=== PATIENT | female | born 1950 | race Caucasian/White ===

== ENCOUNTER 2016-12-22 05:59 | Day surgery (SDC) | payer OTHER ==
--- NOTE | 2016-12-21 11:23 | NUR ---
NN PT HAS IMPLANTED [employer], MODEL# [id number], SERIAL # [id number]
[~2016-12-22] VITALS: Ht 152.4 cm; Wt 114.1 kg
[~2016-12-22 05:59] MED LIST: CITA40TA14 PO; LEVO125T11 PO; LISI1TAB9 PO; MULT-1243 PO; PRAM1TAB3 PO; SOTA80TA PO; TEMA30CA PO
--- OUTSIDE RECORDS SUMMARY | 2016-12-22 06:03 | XMS REPORT | Continuity of Care Document ---
Author Author [facility] Organization [facility] Address Unknown Phone Unavailable Support Name Relationship Address Phone GEORGE ALCANTARA MD Caregiver [address] [place] [phone] BLAIR SANCHEZ MD Caregiver [address] [place], [place] [id number] JAMES ROMAN Next Of Kin [address] [place], [place] [id number] Insurance Providers Payer Name Policy Number Subscriber Name Relationship Other A Insurance [id number] James Roman 01 Spouse Advance Directives Directive Response Recorded Date/Time Ordered Resuscitation Status Full Code 08/12/14 1:57pm Resuscitation Documents on File WILL BRING TO THE HOSPITAL 08/12/14 11:46am Chief Complaint and Reason for Visit Chief Complaint RTK Reason for Visit Degenerative arthritis of right knee Hyperlipemia Hypertension Obesity, morbid, BMI 40.0-49.9 Depression Pre-diabetes Restless leg syndrome Lumbago Insomnia Risk factors for obstructive sleep apnea Fibromyalgia Prolonged UT interval Anemia Hypo-osmolality and hyponatremia Status post total right knee replacement Leukocytosis Sinus bradycardia Sinus pause Paroxysmal atrial fibrillation Status post placement of cardiac pacemaker New onset atrial fibrillation Problems Medical Problems Problem Onset Date Status Degenerative arthritis of right knee Unknown Active Hyperlipemia Unknown Active Hypertension Unknown Active Obesity, morbid, BMI 40.0-49.9 Unknown Active Depression Unknown Active Pre-diabetes Unknown Active Restless leg syndrome Unknown Active Lumbago Unknown Active Insomnia Unknown Active Risk factors for obstructive sleep apnea Unknown Active Fibromyalgia Unknown Active Prolonged UT interval Unknown Active Anemia Unknown Active Hypo-osmolality and hyponatremia Unknown Resolved Status post total right knee replacement Unknown Active Leukocytosis Unknown Active Sinus bradycardia Unknown Active Sinus pause Unknown Active Paroxysmal atrial fibrillation Unknown Active New onset atrial fibrillation Unknown Active Surgical Problems Problem Onset Date Recorded Date/Time Status Status post placement of cardiac pacemaker Unknown 08/16/2014 4:18pm Active Medications Medication Dose Route Sig Days/Qty Instructions Order Date Discontinued Date Status Trazodone Hcl 1 Tab PO DAILY 06/25/08 09/17/10 Discontinued Pramipexole Di-Hcl 1 Tab PO DAILY 06/25/08 06/25/08 Discontinued Aspirin 1 Tab PO DAILY 06/25/08 06/25/08 Discontinued Fexofenadine Hcl 1 Tab PO DAILY 06/25/08 06/25/08 Discontinued Alprazolam 0.5 Mg PO BEDTIME 06/25/08 06/25/08 Discontinued Aspirin 81 Mg PO DAILY 06/25/08 08/17/14 Discontinued Omeprazole 20 Mg PO TWICE A DAY 06/25/08 09/17/10 Discontinued [Kdur] 20 THREE TIMES A DAY 06/25/08 09/17/10 Discontinued Pramipexole Di-Hcl 0.25 Mg PO BEDTIME 06/25/08 09/17/10 Discontinued Ceftriaxone Sodium 1 G IJ DAILY 06/25/08 09/17/10 Discontinued Doxycycline Monohydrate 150 Mg PO TWICE A DAY 06/25/08 09/17/10 Discontinued Hydrocodone Bit/Acetaminophen 1 Udtab PO NEEDED PRN 06/25/0818/07 Discontinued Ibuprofen 800 Mg PO NEEDED PRN 06/25/08 09/17/10 Discontinued Acetaminophen 325 Mg PO NEEDED PRN 06/25/08 09/17/10 Discontinued [Lomotil] NEEDED PRN 06/25/08 09/17/10 Discontinued Salmeterol Xinafoate/Fluticasone 1 Disk IH TWICE A DAY 06/25/0818/07 Discontinued Fluticasone Propionate 16 Gm NS TWICE A DAY 06/25/08 09/17/10 Discontinued Trazodone Hcl 100 Mg PO BEDTIME 09/17/10 Active Levothyroxine Sodium 1 Tab PO DAILY 45 Qty 07/05/14 Active Metformin HCl 500 Mg PO TWICE A DAY 60 Qty 07/05/14 Active Citalopram Hydrobromide 40 Mg PO DAILY 30 Qty 07/05/14 Active Pitavastatin Calcium 1 Mg PO DAILY 90 Qty 07/05/14 Active Omeprazole 40 Mg PO BEDTIME 30 Qty 07/05/14 Active Nebivolol HCl 1 Tab PO DAILY 08/12/14 Active Lisinopril/Hydrochlorothiazide 1 Tab PO DAILY 08/12/14 Active Pramipexole Di-HCl 1 Tab PO DAILY 08/12/14 Active Montelukast Sodium 10 Mg PO BEDTIME Take 1 tablet, by mouth, one time a day (at bedtime). 08/12/14 Active Ranitidine HCl 150 Mg PO BEDTIME 08/12/14 Active Multivits-Min/FA/Lycopene/Lut 1 Tab PO DAILY 08/12/14 Active Ferrous Sulfate, Dried 1 Tab PO DAILY BEST WITH FOOD. 08/12/14 Active Acetaminophen 650 Mg PO FOUR TIMES DAILY 100 Qty 08/17/14 Active Multivits,Th W-Fe,Other Min 1 Tab PO DAILY 30 Qty 08/17/14 Active Oxycodone HCl 5-15 Mg PO Every 3 Hours PRN BREAKTHROUGH PAIN 60 Qty Active Warfarin Sodium 4 Mg PO GIVE AT NOON 30 Qty 08/17/14 Active Enoxaparin Sodium 40 Mg SQ Q24H 5 Qty 08/18/14 Active Levofloxacin 500 Mg PO DAILY 7 Qty 08/18/14 Active Social History Social History Problem Response Recorded Date/Time Chewing Tobacco Status No 08/13/2014 8:10am Hx Substance Use No 08/13/2014 8:10am Hx Alcohol Use No 08/13/2014 8:10am Has the pt used tobacco in the last 12 months No 08/13/2014 8:10am Tobacco Usage none 08/14/2014 1:59pm Query Response Start Date Stop Date Smoking Status Never smoker Hospital Discharge Instructions Instructions: Care Instructions: Reason for Hospitalization: right TKA I was in the hospital because (patient own words): right knee replacement Discharge Diet: Regular Discharge Activity: Restrictions: No lifting greater than 10 pounds with the left arm for 3 weeks. No raising left arm greater than 90 degrees at the shoulder for 3 weeks. Wear arm immobilizer at night for [address] for 2-3 weeks. Follow Up Appointments: Follow-up on Wednesday, August 27, 2014 at 10:30AM for an incision check with Jillian Beaulieu PA-C. Follow-up on September 25 at 1:30pm for office visit with Dr. Sarmiento for a device interrogation. Call [phone] to reschedule if these times fdo not work with your schedule. Patient Instructions: Sotalol 40 mg twice daily Minocycline 100 mg twice daily for 7 days on Discharge. Wound/Incision Care: Keep wound clean and dry. Keep the steri-strips in place. They will fall off on their own. Do not soak in water, but it is ok to shower. Notify Physician If: Increase pain, swelling, redness or drainage at the site is noted. Condition at time of discharge: Good Discharge Diet: Regular Diet Discharge Activity: No weight bearing on left leg. Elevate left leg. Apply ice pack to left knee to reduce swelling. May ambulate with front wheeled walker but must avoid weight bearing left leg. Follow Up Appointments: Scheduled for surgical repair of left tibial plateau fracture by Dr. Wing Dennis on 08/19/14. Patient Instructions: Same as discharge activity listed above Take medications as directed. Durable Medical Equipment: Front wheeled Walker Notify Physician If: Severe pain not controlled with Roxicodone 5 mg 1-2 tabs po q4-6hrs prn pain. Condition at time of discharge: Good Plan of Care Discharge Date 08/18/14 10:45am Disposition 01 DISCHARGED HOME, SELF-CARE Instructions/Education Provided [facility] Postop Instructions DI for Obstructive Sleep Apnea -- Adult Prescriptions See Medications Section Functional Status Query Response Date Recorded Physical Hygiene Self August 18, 2014 10:10am Disabilities None August 18, 2014 10:10am Devices Used Cane Walker August 18, 2014 10:10am Dressing Self August 18, 2014 10:10am Ambulation Self August 18, 2014 10:10am Diet Self August 18, 2014 10:10am Mental Status Alert Oriented August 18, 2014 10:10am Disabilities None August 18, 2014 10:10am Devices Used Cane Walker August 18, 2014 10:10am Physical Hygiene Self August 18, 2014 10:10am Dressing Self August 18, 2014 10:10am Ambulation Self August 18, 2014 10:10am Diet Self August 18, 2014 10:10am Allergies, Adverse Reactions, Alerts Allergen Type Severity Reaction Status Last Updated Penicillin Allergy Unknown RASH Active 09/21/12 Sulfa (Sulfonamide Antibiotics) Allergy Unknown ? RASH Active 09/21/12 Triamterene Allergy Unknown HIVES Active 07/05/14 Immunizations Name Given Type Hx Influenza Vaccination Yes Historical Hx Pneumococcal Vaccination Yes Historical Hx Tetanus, Diptheria, Pertussis Yes Historical Hx Influenza Vaccination Yes Historical Hx Tetanus Diptheria Yes Historical Hx Tetanus, Diptheria, Pertussis Yes Historical Hx Tetanus Toxoid Vaccination Yes Historical Influenza, seasonal, injectable 08/16/14 Administered pneumococcal polysaccharide PPV23 08/16/14 Administered Vital Signs Acute Vital Signs Vital Response Date/Time Temperature (Fahrenheit) 98.2 deg F (96.8 - 99.1) Temperature (Calculated Celsius) 36.53811 degrees C (36.0 - 37.3) Temperature Source Oral Pulse Rate (adult) 68 bpm (60 - 100) Respiratory Rate 16 breaths/min (10 - 20) Height 5 ft 0 in Weight 266 lb Body Mass Index 52.0 kg/m^2 Results Test Source Date Result Interp. Ref. Range Comments Absolute Reticulocyte Count June 24, 2008 4:45am 0.0180 T/MM3 L 0.0300-0.0900 Alanine Aminotransferase (ALT/SGPT) June 20, 2008 1:39am 10 U/L N 9- 52 Albumin June 20, 2008 1:39am 3.3 G/DL L 3.5-5.0 Albumin/Globulin Ratio June 20, 2008 1:39am 1.1 RATIO N 1.1-2.2 Alkaline Phosphatase June 20, 2008 1:39am 89 U/L N 38-126 Anion Gap August 18, 2014 4:25am 5 MEQ/L N 5-15 Aspartate Amino Transf (AST/SGOT) June 20, 2008 1:39am 16 U/L N 14- 36 BUN/Creatinine Ratio August 18, 2014 4:25am 17 RATIO N 6-26 Band Neutrophils # June 25, 2008 5:38am 0.1 T/MM3 - Band Neutrophils % June 25, 2008 5:38am 1.0 % N 0-6 Basophils # (Auto) August 18, 2014 4:25am 0.1 T/MM3 N 0-0.2 Basophils # (Manual) June 23, 2008 5:35am 0.0 T/MM3 N 0-0.2 Basophils % (Manual) June 23, 2008 5:35am 0.0 % N 0-2 Basophils (%) (Auto) August 18, 2014 4:25am 0.7 % N 0-2 Blood Urea Nitrogen August 18, 2014 4:25am 12.0 MG/DL N 7-17 C-Reactive Protein June 20, 2008 1:39am 210 MG/L H 0-9 Calcium Level August 18, 2014 4:25am 8.9 MG/DL N 8.4-10.2 Calculated Osmolality August 18, 2014 4:25am 266 MOSM/KG N 261-280 Carbon Dioxide Level August 18, 2014 4:25am 33 MEQ/L H 22-30 Chemistry Specimen Hemolysis August 18, 2014 4:25am < 15 0-25 0-25 : No Hemolysis.26-70: Slight Hemolysis - can falsely elevate K and Urine Protein. 71-285: Moderate Hemolysis - can falsely elevate K, Troponin I, CA 19-9, PTH, CSF GLucose, and Urine Protein, and can falsely decrease Phenytoin. 286-999: Gross Hemolysis - can falsely elevate K, Troponin I, CA 19-9, PTH, CSF Glucose, and Urine Protine, and can falsely decrease Phenytoin. Recommend specimen recollection. Chloride Level August 18, 2014 4:25am 100 MEQ/L N 98-107 Clostridium Difficile Toxin A & B June 21, 2008 1:03am Negative - Has specimen been collected/obtained? Y Creatinine August 18, 2014 4:25am 0.7 MG/DL N 0.7-1.2 Differential Total Cells Counted June 17, 2008 9:45pm 100 % - Eosinophils # (Auto) August 18, 2014 4:25am 0.5 T/MM3 N 0-0.5 Eosinophils # (Manual) June 25, 2008 5:38am 0.1 T/MM3 N 0-0.5 Eosinophils % (Manual) June 25, 2008 5:38am 1.0 % N 0-4 Eosinophils (%) (Auto) August 18, 2014 4:25am 5.9 % H 0-4 Erythrocyte Sedimentation Rate June 20, 2008 1:39am 47 MM/HR - Ferritin June 24, 2008 4:45am 649 NG/ML H 10-265 Globulin June 20, 2008 1:39am 3.0 G/DL N 2.4-3.5 Glomerular Filtration Rate Calc August 18, 2014 4:25am 85 - Glucometer August 18, 2014 10:20am 106 mg/dL N 65-110 Glucose Level August 18, 2014 4:25am 102 MG/DL N 65-110 HIV (1&2) Antibody Rapid June 20, 2008 1:39am Negative - Hematocrit August 18, 2014 4:25am 31.3 % L 36-46 Hemoglobin August 18, 2014 4:25am 10.1 GM/DL L 12-16 Icterus Index August 18, 2014 4:25am < 2 0-7 Immature Granulocyte # (Auto) August 18, 2014 4:25am 0.03 T/MM3 N 0.00 -0.03 Immature Granulocyte % (Auto) August 18, 2014 4:25am 0.4 % N 0.0-0.5 Immature Reticulocyte Fraction June 24, 2008 4:45am 18.0 % H 3.3- 14.5 Influenza Virus Types A,B Antigen June 20, 2008 1:39am Negative - Iron Level June 24, 2008 4:45am 20 UG/DL L 37-170 Lab Scanned Report August 05, 2014 9:37am LAB TEST FORM REQUEST [id number] - Lyme Disease Total Antibody June 20, 2008 12:00am Send out - Lymphocytes # (Auto) August 18, 2014 4:25am 1.8 T/MM3 N 1-4.8 Lymphocytes # (Manual) June 25, 2008 5:38am 2.9 T/MM3 N 1-4.8 Lymphocytes % (Manual) June 25, 2008 5:38am 32.0 % N 23-45 Lymphocytes (%) (Auto) August 18, 2014 4:25am 21.1 % L 23-45 MRSA Specimen Source August 05, 2014 8:51am Nasal - Magnesium Level August 15, 2014 4:33am 2.1 MG/DL N 1.6-2.3 Mean Corpuscular Hemoglobin August 18, 2014 4:25am 29.3 UUG N 26-34 Mean Corpuscular Hemoglobin Concent August 18, 2014 4:25am 32.3 GM/DL N 31-37 Mean Corpuscular Volume August 18, 2014 4:25am 90.7 UM3 N 80-100 Mean Platelet Volume August 18, 2014 4:25am 9.7 UM3 N 9.4-12.4 Methicillin-Resist S.aureus DNA PCR August 05, 2014 8:51am Negative - Monocytes # (Auto) August 18, 2014 4:25am 0.9 T/MM3 H 0-0.8 Monocytes # (Manual) June 25, 2008 5:38am 0.8 T/MM3 N 0-0.8 Monocytes % (Manual) June 25, 2008 5:38am 9.0 % N 0-9.0 Monocytes (%) (Auto) August 18, 2014 4:25am 11.0 % H 0-9.0 MF-Jpk-V-Type Natriuretic Peptide September 21, 2012 10:41pm 241 PG/ML H 0 -175 Rule in cut points: <50 years old=450; 50-75 years old=900; >75 years old=1800; When utilizing ProBNP rule-in cut points, adjustment for impaired renal function is typically not required. Neutrophils # (Auto) August 18, 2014 4:25am 5.1 T/MM3 N 1.8-7.7 Neutrophils # (Manual) June 25, 2008 5:38am 5.1 T/MM3 N 1.8-7.7 Neutrophils % (Manual) June 25, 2008 5:38am 57.0 % N 33-66 Neutrophils (%) (Auto) August 18, 2014 4:25am 60.9 % N 33-66 Ova and Parasites (LAB) June 22, 2008 11:46am Sent out - Has specimen been collected/obtained? Y Percent Reticulocyte Count June 24, 2008 4:45am 0.6 % N 0.6-1.7 Platelet Count August 18, 2014 4:25am 218 T/MM3 N 130-400 Potassium Level August 18, 2014 4:25am 3.9 MEQ/L N 3.6-5 Prothromb Time International Ratio August 18, 2014 4:25am 1.54 H 0.81- 1.09 THERAPUTIC RANGE=2.00-3.00 FOR ANTI-THROMBOSIS THERAPUTIC RANGE=2.50- 3.50 FOR IMPLANTED VALVE RDW Standard Deviation August 18, 2014 4:25am 43.6 FL N 36.9-50.2 Red Blood Count August 18, 2014 4:25am 3.45 M/MM3 L 4.00-5.20 Sodium Level August 18, 2014 4:25am 138 MEQ/L N 134-144 Thyroid Stimulating Hormone (TSH) August 15, 2014 4:33am 0.65 MIU/L N 0.47-4.68 Total Bilirubin June 20, 2008 1:39am 0.39 MG/DL N 0.20-1.30 Total Protein June 20, 2008 1:39am 6.3 G/DL N 6.3-8.2 Troponin I September 21, 2012 10:41pm < 0.012 ng/ml 0-0.12 Turbidity August 18, 2014 4:25am < 20 0-20 Urinalysis Comment August 16, 2014 1:00pm Microscopic not ind. - Has specimen been collected/obtained? Y Urine Bacteria June 21, 2008 2:00pm Trace - Has specimen been collected/obtained? Y Urine Bilirubin August 16, 2014 1:00pm Negative - Has specimen been collected/obtained? Y Urine Blood August 16, 2014 1:00pm Negative - Has specimen been collected/obtained? Y Urine Collection Type August 16, 2014 1:00pm Has specimen been collected /obtained? Y - Urine Color August 16, 2014 1:00pm Yellow - Has specimen been collected/obtained? Y Urine Glucose (UA) August 16, 2014 1:00pm Negative - Has specimen been collected/obtained? Y Urine Ketones August 16, 2014 1:00pm Negative - Has specimen been collected/obtained? Y Urine Leukocyte Esterase August 16, 2014 1:00pm Negative - Has specimen been collected/obtained? Y Urine Nitrite August 16, 2014 1:00pm Negative - Has specimen been collected/obtained? Y Urine Protein August 16, 2014 1:00pm Negative - Has specimen been collected/obtained? Y Urine RBC June 21, 2008 2:00pm None seen /HPF - Has specimen been collected/obtained? Y Urine Specific [place] August 16, 2014 1:00pm 1.025 - Has specimen been collected/obtained? Y Urine Squamous Epithelial Cells June 21, 2008 2:00pm Few - Has specimen been collected/obtained? Y Urine Turbidity August 16, 2014 1:00pm Clear - Has specimen been collected/obtained? Y Urine Urobilinogen August 16, 2014 1:00pm 0.2 EU/DL - Has specimen been collected/obtained? Y Urine WBC June 21, 2008 2:00pm 0-1 /HPF - Has specimen been collected/obtained? Y Urine pH August 16, 2014 1:00pm 6.0 - Has specimen been collected/ obtained? Y West Nile Virus IgG/IgM Antibody June 20, 2008 12:00am Send out - White Blood Count August 18, 2014 4:25am 8.4 T/MM3 N 4.5-11.0 Blood Culture Peripheral Blood August 16, 2014 11:54am NO GROWTH AFTER 24 HOURS Name: JEFF ROMAN Unit #: [id number] : 1950 Sex: F [place] [facility] [place] Signed Report #: [id number] DIAGNOSTIC IMAGING REPORT TYPE OF EXAM: CHEST, PA & LATERAL Dictated By: WING ALCANTARA MD INDICATION: ITS.REASON: POST PACER CHEST 2-VIEWS UPRIGHT (PA & LAT): COMPARISON: August 15, 2014 FINDINGS: The lungs are clear without evidence of focal abnormal airspace opacity. There is no pleural effusion or pneumothorax. Left dual lead cardiac pacemaker appears stable. No evidence of lead fracture or discontinuity. The heart size, mediastinal contours and pulmonary vascularity are within normal limits. There is no significant skeletal abnormality. IMPRESSION: No acute cardiopulmonary disease. Stable appearance of the left pacemaker leads. . Procedures Procedure Status Date Provider(s) MR-STAPH DNA AMP PROBE completed 07/16/14 INJECT SPINE LUMBAR/SACRAL completed 08/05/14 FLUOROGUIDE FOR SPINE INJECT completed 08/05/14 [id number]"INJECTION, METHYLPREDNISOLONE ACETATE, 40 MG" completed 08/05/14 [id number]"LOW OSMOLAR CONTRAST MATERIAL, 100-199 MG/ML IODINE C completed MR-STAPH DNA AMP PROBE completed 07/29/14 MR-STAPH DNA AMP PROBE completed 08/05/14 Total knee arthroplasty completed 08/13/14 BLAIR SANCHEZ MD Encounters Encounter Location Date/Time Discharged Inpatient [facility] 08/13/14 7:40am Registered [facility] 08/05/14 8:05am Registered [facility] 08/05/14 8:03am Registered [facility] 07/29/14 12:56pm Registered [facility] 07/16/14 1:38pm Registered [facility] 05/28/14 12:57pm Recent Diagnosis Degenerative arthritis of right knee Hyperlipemia Hypertension Obesity, morbid, BMI 40.0-49.9 Depression Pre-diabetes Restless leg syndrome Lumbago Insomnia Risk factors for obstructive sleep apnea Fibromyalgia Prolonged UT interval Anemia Hypo-osmolality and hyponatremia Status post total right knee replacement Leukocytosis Sinus bradycardia Sinus pause Paroxysmal atrial fibrillation New onset atrial fibrillation
--- OUTSIDE RECORDS SUMMARY | 2016-12-22 06:03 | XMS REPORT | Summary of Care ---
Author Author Shelby Navarrete, Randi Organization Unknown Address [address], [place] [id number] Phone Unavailable Care Team Providers Care Technical Cable Jointer Name Role Phone Skelton, Db Unavailable Unavailable Unavailable Unavailable Functional Status Functional Status Health Issues* Name Dates Details No known functional status health issues Status: Cognitive Status Health Issues* Name Dates Details No known cognitive status health issues Status: Problems Name Dates Details Hypertension (401.9, I10) Status: Active Diabetes mellitus (250.00, E11.9) Status: Active Chronic ethmoidal sinusitis (473.2, J32.2) Status: Active Head ache (784.0, R51) Status: Active Nasal congestion (478.19, R09.81) Status: Active Sleep apnea (780.57, G47.30) Status: Active Thyroid disorder (246.9, E07.9) Status: Active High blood cholesterol level (272.0, E78.0) Status: Active Chronic rhinitis (472.0, J31.0) Status: Active Medications Name Dates Details Levothyroxine Sodium 150 MCG Oral Tablet * Started 29-Nov-2013 ActiveMetFORMIN HCl - 500 MG Oral Tablet * Refills: 0 * Started 29-Nov-2013 ActiveLisinopril 10 MG Oral Tablet * Refills: 0 * Started 29-Nov-2013 ActiveBystolic 10 MG Oral Tablet * Refills: 0 * Started 29-Nov-2013 ActiveLivalo 1 MG Oral Tablet * Refills: 0 * Started 29-Nov-2013 ActiveCitalopram Hydrobromide 40 MG Oral Tablet * Refills: 0 * Started 29-Nov-2013 ActiveTraZODone HCl - 100 MG Oral Tablet * Refills: 0 * Started 29-Nov-2013 ActiveMirapex 1 MG Oral Tablet * Refills: 0 * Started 29-Nov-2013 ActiveAspir-Low 81 MG Oral Tablet Delayed Release * Refills: 0 * Started 29-Nov-2013 ActiveAllegra Allergy 180 MG Oral Tablet * Refills: 0 * Started 29-Nov-2013 ActivePhentermine HCl - 30 MG Oral Capsule * Refills: 0 * Started 29-Nov-2013 ActiveAleve 220 MG Oral Tablet * Refills: 0 * Started 29-Nov-2013 ActiveDymista 137-50 MCG/ACT Nasal Suspension 1 spray each nostril twice a day * Quantity: 1X23 GM Bottle Refills: 6 * Started 14-May-2014 Ended 10-Dec-2014 ActiveMontelukast Sodium 10 MG Oral Tablet Take 1 tablet by mouth every evening. * Quantity: 30 Tablet Refills: 6 * Started 14-May-2014 Ended 10-Dec-2014 ActivePredniSONE 20 MG Oral Tablet take one tablet by mouth every day * Quantity: 3 Tablet Refills: 0 * Started 14-May-2014 Ended 17-May-2014 Active Allergies and Adverse Reactions Name Dates Details Penicillins Status: Active Sulfa Drugs Status: Active Maxzide Status: Active Procedures Procedure Dates Details Section Tubal Ligation Procedures not documented Immunization Name Dates Details Immunizations not documented Family History Mother* Name Dates Details Family history of allergic rhinitis (V19.6, Z84.89) Status: Active Family history of urticaria (V19.4, Z84.0) Status: Active Family history of asthma (V17.5, Z82.5) Status: Active Social History Smoking Status* Unknown if ever smoked Vital Signs Date Test Result Details 14-May-2014 13:58 BP Systolic 128 mm[Hg] Status: BP Diastolic 65 mm[Hg] Status: Heart Rate 56 /min Status: Temperature 98.2 f Status: Weight 253 lb Status: Height 59 in Status: Body Mass Index Calculated 51.1 kg/m2 Status: Body Surface Area Calculated 2.04 Status: Results Date Description Value Details Results not documented Plan of Care Instructions* Instructions not documented Planned Observations* Name Dates Details Planned Goals not documented Goal Instructions * No Known Instructions Encounters Appointment; Randi Ryan Encounter Diagnosis: Problem not documented On 14-May-2014 13:30 Appointment; Alverto Dover Encounter Diagnosis: Problem not documented On 29-Nov-2013 10:15
--- OUTSIDE RECORDS SUMMARY | 2016-12-22 06:03 | XMS REPORT | Continuity of Care Document ---
Author Author [facility] Organization [facility] Address Unknown Phone Unavailable Support Name Relationship Address Phone GEORGE ALCANTARA MD Caregiver [address] [place] [phone] BLAIR VU MD Caregiver [address] [address] JAMES ROMAN Next Of Kin [address] [place] [address] Insurance Providers Payer Name Policy Number Subscriber Name Relationship Other A Insurance [id number] James Roman 01 Spouse Problems Medical Problems Problem Onset Date Status Degenerative arthritis of right knee Unknown Active Hyperlipemia Unknown Active Hypertension Unknown Active Obesity, morbid, BMI 40.0-49.9 Unknown Active Depression Unknown Active Pre-diabetes Unknown Active Restless leg syndrome Unknown Active Lumbago Unknown Active Insomnia Unknown Active Risk factors for obstructive sleep apnea Unknown Active Fibromyalgia Unknown Active Prolonged MA interval Unknown Active Anemia Unknown Active Hypo-osmolality [...] Omeprazole 20 Mg PO TWICE A DAY 10/28/08 01/20/11 Discontinued [Kdur] 20 THREE TIMES A DAY [...] History Social History Problem Response Recorded Date/Time Hx Substance Use No 08/13/2014 8:10am Hx Alcohol Use No 08/13/2014 8:10am Has the pt used tobacco in the last 12 months No 08/19/2014 1:16pm Tobacco Usage none 08/14/2014 1:59pm Hospital Discharge Instructions Instructions: Care Instructions: Reason [...] at 1:30pm for office visit with Dr. Garcia for a device interrogation. Call [phone] to reschedule if these times fdo not [...] noted. Condition at time of discharge: Good Plan of Care Discharge Date 08/18/14 10:45am Disposition 01 DISCHARGED HOME, SELF-CARE Instructions/Education Provided [facility] Postop Instructions DI for Obstructive Sleep Apnea -- Adult Prescriptions See Medications Section Functional Status Query Response Date Recorded Physical Hygiene Self August 18, 2014 10:10am Physical Hygiene Self August 18, 2014 10:10am Allergies, Adverse Reactions, Alerts Allergen Type Severity Reaction Status Last Updated Penicillin Allergy Unknown RASH Active 09/21/12 Sulfa (Sulfonamide Antibiotics) Allergy Unknown ? RASH Active 09/21/12 Triamterene Allergy Unknown HIVES Active 07/05/14 Immunizations Name Given Type Hx Influenza Vaccination No Historical Hx Pneumococcal Vaccination No Historical Hx Tetanus, Diptheria, Pertussis Yes Historical Hx Influenza Vaccination No Historical Hx Tetanus Diptheria Yes Historical Hx Tetanus, Diptheria, Pertussis Yes Historical Hx Tetanus Toxoid Vaccination Yes Historical Vital Signs Acute Vital Signs Vital Response Date/Time Temperature (Fahrenheit) 98.2 deg F (96.8 - 99.1) Temperature (Calculated Celsius) 36.86759 degrees C (36.0 - 37.3) Temperature Source Oral Pulse Rate (adult) 68 bpm (60 - 100) Respiratory Rate 16 breaths/min (10 - 20) Results Test Source Date Result Interp. Ref. [...] 18, 2014 4:25am 33 MEQ/L H 22-30 Chloride Level August 18, 2014 4:25am 100 [...] 20, 2008 1:39am 3.0 G/DL N 2.4-3.5 Glucose Level August 18, 2014 4:25am 102 MG/DL N 65-110 Hematocrit August 18, 2014 4:25am 31.3 % L 36-46 Hemoglobin August 18, 2014 4:25am 10.1 GM/DL L 12-16 Immature Reticulocyte Fraction June 24, 2008 4:45am 18.0 % H 3.3- 14.5 Influenza Virus Types A,B Antigen June 20, 2008 1:39am Negative - Iron Level June 24, 2008 4:45am 20 UG/DL L 37-170 Lymphocytes # (Auto) August 18, 2014 4:25am 1.8 T/MM3 N 1-4.8 Lymphocytes # (Manual) June 25, 2008 5:38am 2.9 T/MM3 N 1-4.8 Lymphocytes % (Manual) June 25, 2008 5:38am 32.0 % N 23-45 Lymphocytes (%) (Auto) August 18, 2014 4:25am 21.1 % L 23-45 Magnesium Level August 15, 2014 4:33am 2.1 MG/DL N 1.6-2.3 Mean Corpuscular Hemoglobin August 18, 2014 4:25am 29.3 UUG N 26-34 Mean Corpuscular Hemoglobin Concent August 18, 2014 4:25am 32.3 GM/DL N 31-37 Mean Corpuscular Volume August 18, 2014 4:25am 90.7 UM3 N 80-100 Mean Platelet Volume August 18, 2014 4:25am 9.7 UM3 N 9.4-12.4 Monocytes # (Auto) August 18, 2014 4:25am 0.9 T/MM3 H 0-0.8 Monocytes # (Manual) June 25, 2008 5:38am 0.8 T/MM3 N 0-0.8 Monocytes % (Manual) June 25, 2008 5:38am 9.0 % N 0-9.0 Monocytes (%) (Auto) August 18, 2014 4:25am 11.0 % H 0-9.0 Neutrophils # (Auto) August 18, 2014 4:25am [...] N 3.6-5 Prothromb Time International Ratio August 26, 2014 1:11pm 1.87 H 0.81- 1.09 THERAPUTIC RANGE=2.00-3.00 FOR ANTI-THROMBOSIS [...] 21, 2012 10:41pm < 0.012 ng/ml 0-0.12 Urine Bacteria June 21, 2008 2:00pm Trace - Has specimen been collected/obtained? Y Urine Bilirubin August 16, 2014 1:00pm Negative - Has specimen been collected/obtained? Y Urine Blood August 16, 2014 1:00pm Negative - Has specimen been collected/obtained? Y Urine Collection Type June 21, 2008 2:00pm Voided - Has specimen been collected/obtained? Y Urine Color August 16, 2014 1:00pm Yellow [...] Has specimen been collected/obtained? Y Urine Specific [place] August 16, 2014 1:00pm 1.025 - Has [...] - Has specimen been collected/ obtained? Y White Blood Count August 18, 2014 4:25am 8.4 T/MM3 N 4.5-11.0 West Nile Virus IgG/IgM Antibody June 20, 2008 12:00am Send out - Chemistry Specimen Hemolysis August 18, 2014 4:25am [...] can falsely decrease Phenytoin. Recommend specimen recollection. Urinalysis Comment August 16, 2014 1:00pm Microscopic not ind. - Has specimen been collected/obtained? Y Glucometer August 18, 2014 10:20am 106 mg/dL N 65-110 Lab Scanned Report August 26, 2014 8:14pm LAB TEST FORM REQUEST [id number] - Methicillin-Resist S.aureus DNA PCR August 05, 2014 8:51am Negative - HIV (1&2) Antibody Rapid June 20, 2008 1:39am Negative - Lyme Disease Total Antibody June 20, 2008 12:00am Send out - Turbidity August 18, 2014 4:25am < 20 0-20 Glomerular Filtration Rate Calc August 18, 2014 4:25am 85 - Immature Granulocyte # (Auto) August 18, 2014 4:25am 0.03 T/MM3 N 0.00 -0.03 Immature Granulocyte % (Auto) August 18, 2014 4:25am 0.4 % N 0.0-0.5 Icterus Index August 18, 2014 4:25am < 2 0-7 MRSA Specimen Source August 05, 2014 8:51am Nasal - ZF-Ruq-U-Type Natriuretic Peptide September 21, 2012 10:41pm 241 PG/ML H 0 -175 Rule in cut points: <50 years old=450; 50-75 years old=900; >75 years old=1800; When utilizing ProBNP rule-in cut points, adjustment for impaired renal function is typically not required. Blood Culture Peripheral Blood August 16, 2014 11:54am NO GROWTH AFTER 5 DAYS Name: JEFF ROMAN Unit #: [id number] : 1950 Sex: F DISCHARGE SUMMARY Admit Date: 08/13/14 Report #: [id number] General Date Date DATE: 08/18/14 TIME: 09:13 Attending Physician Blair Vu MD Admitting Physician Blair Vu MD Consulting Physician Gorge Garcia MD Admitting Diagnosis Right knee DJD Discharge Diagnosis Right knee DJD Procedures Right TKA Laboratory Laboratory Laboratory Tests Test 08/17/14 08/17/14 08/17/14 08/18/14 10:26 14:05 20:24 04:25 Glucometer 117 mg/dL 90 mg/dL 108 mg/dL White Blood Count 8.4 T/MM3 Red Blood Count 3.45 M/MM3 Hemoglobin 10.1 GM/DL Hematocrit 31.3 % Mean Corpuscular Volume 90.7 UM3 Mean Corpuscular Hemoglobin 29.3 UUG Mean Corpuscular Hemoglobin 32.3 GM/DL Concent RDW Standard Deviation 43.6 FL Platelet Count 218 T/MM3 Mean Platelet Volume 9.7 UM3 Immature Granulocyte % (Auto) 0.4 % Neutrophils (%) (Auto) 60.9 % Lymphocytes (%) (Auto) 21.1 % Monocytes (%) (Auto) 11.0 % Eosinophils (%) (Auto) 5.9 % Basophils (%) (Auto) 0.7 % Immature Granulocyte # (Auto) 0.03 T/MM3 Neutrophils # (Auto) 5.1 T/MM3 Lymphocytes # (Auto) 1.8 T/MM3 Monocytes # (Auto) 0.9 T/MM3 Eosinophils # (Auto) 0.5 T/MM3 Basophils # (Auto) 0.1 T/MM3 Prothromb Time International 1.54 Ratio Turbidity < 20 Sodium Level 138 MEQ/L Potassium Level 3.9 MEQ/L Chloride Level 100 MEQ/L Carbon Dioxide Level 33 MEQ/L Anion Gap 5 MEQ/L Blood Urea Nitrogen 12.0 MG/DL Creatinine 0.7 MG/DL Glomerular Filtration Rate 85 Calc BUN/Creatinine Ratio 17 RATIO Glucose Level 102 MG/DL Calculated Osmolality 266 MOSM/KG Calcium Level 8.9 MG/DL Icterus Index < 2 Chemistry Specimen Hemolysis < 15 Test 08/18/14 05:54 Glucometer 99 mg/dL Microbiology Microbiology Date/Time Procedure Status Source Growth 08/16/14 11:54 Blood Culture - Preliminary Resulted Peripheral Blood NO GROWTH AFTER 24 HOURS 08/16/14 11:54 Blood Culture - Preliminary Resulted Peripheral Blood NO GROWTH AFTER 24 HOURS History of Present Illness This patient was admitted for elective surgical tx of end stage degenerative joint disease that failed to respond to conservative treatment. Further details of this is found in the admission H&P. This is a 63 year old female patient with the only history of HTN from a cardiac standpoint that had a right total knee replacement with orthopedics on 08/13/14. She has been recovering well, but last evening had a reported episode of a 2 second pause and telemetry revealed sinus bradycardia with a rate of 49. The patient denies any cardiac symptoms including SOA, CP or palpitations. She has been on Bystolic to control BP for some time. The patient only has a history of hypothyroidism and denies cardiac history. We are consulted regarding the rhythm issues. Hospital Course 08-13 Pt underwent successful right TKA by Dr Vu. Barbara bridge until INR therapeutic on Coumadin. Kefzol X 24 hrs post op Monitor O2sats for sleep apnea. Use CPAP. Accu-checks. SS insulin until diet is restarted. 08-14 Pt developed 2 second pause in telemetry. EKG showed long MA interval with sinus clifton rate of 49. Hospitalist and Cardiology consulted. Bystolic was held and lisinopril increased. Monitor BP and rhythm for now. Check Mag and TSH. Echo today or tomorrow due to murmur noted on CV exam. Mild hypo-osmotic hyponatremia noted and fluid restriction was initiated. HCTZ held. Accu-checks to monitor blood sugars. Metformin restarted. Begin ADA diet. Pt had a low grade temp so a CXR and UA was checked. Results neg for infectious process. I.S. being used to keep pulmonary system clear. Dressing dry. Stable from the standpoint of her knee. 08-15 Pt off Bystolic but developed bradycardia in the 40's overnight. 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 She was not symptomatic. Hyponatremia improved to 136. Hgb 10.6 , INR 1.28 , BMP wnl , Using CPAP at night. Still requiring some O2. Doing well with mobility issues. Dressing is dry and intact. 08/16 Fever this am 101.2. Will check UA again. 08/14 spec clean. CXR clear. Knee site looks good. Pacer site looks good. Did not receive flu shot this hospitalization.Order BC X2 this am. Encourage IS. Start Levaquin empirically given pacer insert and unspec fever. Discontinue T3 for pain, on scheduled Tylenol by Dr. Vu. Coumadin, INR 1.45 today, continuing Lovenox until therapeutic. Continue with PT with the following Cardiac restrictions: No lifting greater than 10 pounds with the left arm for 3 weeks. No raising left arm greater than 90 degrees at the shoulder for 3 weeks. Wear arm immobilizer at night for [address] for 2-3 weeks. Upon discharge, will have Follow-up with Guillermina on Tuesday, August 27, 2014 at 10:30AM for an incision check. Follow-up on September 25 at 1:30pm for office visit with Dr. Garcia for a device interrogation. Also on dismissal, will need Minocin 100 mg BID on D/C for 7 days. Rx for Sotalol and Minocin on chart. 08/17 Temp elevated last night to 101.2 at 7 pm. WBC normal. Will hold off on dc until afebrile 24 hours. Encouraged patient to hit IS very aggressively. BC neg at 24 hours UA/CXR neg. Pacer site and rt knee sites without evidence of infection INR 1.61, continues on Lovenox and Coumadin until therapeutic. Hgb 9.7 post op, stable. Anticipate dc in am if afebrile overnight. 08/18 Medicine service has cleared her for Discharge. Problems: DVT Prophylaxis: Lovenox, Coumadin GI Prophylaxis: Protonix Code Status Full Code Home Meds Active Scripts Enoxaparin Sodium (Lovenox)40 Mg/0.4 Ml Inj40 Mg SQ Q24H #5 Prov:ANTONIETA OTERO 08/18/14 Warfarin Sodium (Coumadin)4 Mg Tablet4 Mg PO NOON #30 TAB Prov:ANTONIETA TOERO 08/17/14 Oxycodone HCl (Roxicodone)5 Mg Tablet5-15 Mg PO Q3H PRN (BREAKTHROUGH PAIN) #60 TAB Prov:ANTONIETA OTERO 08/17/14 Multivits,Th W-Fe,Other Min (Therems-H)1 Tab Tablet1 Tab PO DAILY #30 TAB Prov:ANTONIETA OTERO 08/17/14 Acetaminophen (Tylenol)325 Mg Vhyyid370 Mg PO QID #100 TAB Prov:ANTONIETA OTERO 08/17/14 Reported Medications Ferrous Sulfate, Dried (Iron)159 Mg Tablet.er1 Tab PO DAILY BEST WITH FOOD. 08/12/14 Multivits-Min/FA/Lycopene/Lut (Centrum Silver Tablet)1 Each Tablet1 Tab PO DAILY 08/12/14 Ranitidine HCl 150 Mg Sxuiqq568 Mg PO HS Take 1 tablet, by mouth, 1 time a day (at BEDTIME). 08/12/14 Montelukast Sodium 10 Mg Ascbrq70 Mg PO HS Take 1 tablet, by mouth, one time a day (at bedtime). 08/12/14 Pramipexole Di-HCl (Mirapex)1 Mg Tablet1 Tab PO DAILY 08/12/14 Lisinopril/Hydrochlorothiazide (Lisinopril-Hctz 10-12.5 mg Tab)1 Each Tablet1 Tab PO DAILY 08/12/14 Nebivolol HCl (Bystolic)10 Mg Tablet1 Tab PO DAILY 08/12/14 Omeprazole 40 Mg Capsule.dr40 Mg PO HS #30 07/05/14 Pitavastatin Calcium (Livalo)1 Mg Tablet1 Mg PO DAILY #90 07/05/14 Citalopram Hydrobromide (Celexa)40 Mg Rzqcpf75 Mg PO DAILY #30 07/05/14 Metformin HCl 500 Mg Zgduzj080 Mg PO BID #60 07/05/14 Levothyroxine Sodium 125 Mcg Tablet1 Tab PO DAILY #45 07/05/14 Trazodone Hcl 100 Mg Xlmbse327 Mg PO HS 09/17/10 Discontinued Reported Medications Aspirin (Aspir 81)81 Mg Tablet.dr81 Mg PO DAILY 06/25/08 Discharge Disposition to home with Coumadin and Lovenox. ANTONIETA OTERO Aug 18, 2014 09:18 Procedures Procedure Status Date Provider(s) TOTAL KNEE ARTHROPLASTY completed 08/13/14 BLAIR VU MD INSRT HEART PM ATRIAL & VENT completed 08/13/14 GORGE GARCIA MD MR-STAPH DNA AMP PROBE completed 07/16/14 INJECT SPINE LUMBAR/SACRAL completed 08/05/14 FLUOROGUIDE FOR SPINE INJECT completed 08/05/14 887564"INJECTION, METHYLPREDNISOLONE ACETATE, 40 MG" completed 08/05/14 [id number]"LOW OSMOLAR CONTRAST MATERIAL, 100-199 MG/ML IODINE C completed MR-STAPH DNA AMP PROBE completed 07/29/14 MR-STAPH DNA AMP PROBE completed 08/05/14 ROUTINE VENIPUNCTURE completed 08/19/14 PROTHROMBIN TIME completed 08/19/14 Encounters Encounter Location Date/Time Discharged Recurring [facility] 08/26/14 1:00pm Registered [facility] 08/22/14 1:05pm Registered [facility] 08/19/14 3:50pm Discharged Inpatient [facility] 08/13/14 7:40am Registered [facility] 08/05/14 8:05am Registered [facility] 08/05/14 8:03am Registered [facility] 07/29/14 12:56pm Registered [facility] 07/16/14 1:38pm
--- OUTSIDE RECORDS SUMMARY | 2016-12-22 06:04 | XMS REPORT | Continuity of Care Document ---
Author Author [facility] Organization [facility] Address Unknown Phone Unavailable Support Name Relationship Address Phone GEORGE ALCANTARA MD Caregiver [address] [place] [phone] BLAIR VU MD Caregiver [address] [place] [address] [phone] JAMES ROMAN Next Of Kin [address] [place] [address] Insurance Providers Payer Name Policy Number Subscriber Name Relationship Other A Insurance [id number] James Roman 01 Spouse Problems Medical Problems Problem Onset Date Status Degenerative arthritis of right knee Unknown Active Hyperlipemia Unknown Active Hypertension Unknown Active Obesity, morbid, BMI 40.0-49.9 Unknown Active Depression Unknown Active Pre-diabetes Unknown Active Restless leg syndrome Unknown Active Lumbago Unknown Active Insomnia Unknown Active Risk factors for obstructive sleep apnea Unknown Active Fibromyalgia Unknown Active Prolonged RI interval Unknown Active Anemia Unknown Active Hypo-osmolality [...] 2-3 weeks. Follow Up Appointments: Follow-up on Tuesday, August 27, 2014 at 10:30AM for an incision check with Jillian Beaulieu PA-C. Follow-up on September 25 at 1:30pm for office visit with Dr. Garcia for a device interrogation. Call [phone] to reschedule if these times fdo not [...] F (96.8 - 99.1) Temperature (Calculated Celsius) 36.79564 degrees C (36.0 - 37.3) Temperature Source [...] MEQ/L N 3.6-5 Prothromb Time International Ratio September 02, 2014 10:20am 1.59 H 0.81- 1.09 THERAPUTIC RANGE=2.00-3.00 FOR ANTI-THROMBOSIS [...] Has specimen been collected/obtained? Y Urine Specific [place] August 16, 2014 1:00pm 1.025 - Has [...] 106 mg/dL N 65-110 Lab Scanned Report September 02, 2014 12:29pm LAB TEST FORM REQUEST [id number] - Methicillin-Resist S.aureus DNA PCR August 05, [...] Source August 05, 2014 8:51am Nasal - XQ-Lwo-R-Type Natriuretic Peptide September 21, 2012 10:41pm 241 PG/ML H 0 -175 Rule in cut points: <50 years old=450; 50-75 years old=900; >75 years old=1800; When utilizing ProBNP rule-in cut points, adjustment for impaired renal function is typically not required. Blood Culture Peripheral Blood August 16, 2014 11:54am NO GROWTH AFTER 5 DAYS Name: JEFF ROMAN Unit #: [id number] : 1950 Sex: F DISCHARGE SUMMARY Admit Date: 08/13/14 Report #: [id number] General Date Date DATE: 08/18/14 TIME: 09:13 [...] second pause in telemetry. EKG showed long RI interval with sinus clifton rate of 49. [...] the 40's overnight. 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 08/12/14 Multivits-Min/FA/Lycopene/Lut (Centrum Silver Tablet)1 Each Tablet1 Tab PO DAILY 08/12/14 Ranitidine HCl 150 Mg Vzldih784 Mg PO HS Take 1 tablet, by mouth, 1 time a day (at BEDTIME). 08/12/14 Montelukast Sodium 10 Mg Ejqxzj64 Mg PO HS Take 1 tablet, by [...] DAILY #90 07/05/14 Citalopram Hydrobromide (Celexa)40 Mg Ebavsi45 Mg PO DAILY #30 07/05/14 Metformin HCl 500 Mg Nrtwdp941 Mg PO BID #60 07/05/14 Levothyroxine Sodium 125 Mcg Tablet1 Tab PO DAILY #45 07/05/14 Trazodone Hcl 100 Mg Erclml988 Mg PO HS 09/17/10 Discontinued Reported Medications Aspirin (Aspir 81)81 Mg Tablet.dr81 Mg PO DAILY 06/25/08 Discharge Disposition to home with Coumadin and Lovenox. ANTONIETA OTERO Aug 18, 2014 09:18 Procedures Procedure Status Date Provider(s) TOTAL KNEE ARTHROPLASTY completed 08/13/14 BLAIR VU MD INSRT HEART PM ATRIAL & VENT completed 08/13/14 GORGE GARCIA MD INJECT SPINE LUMBAR/SACRAL completed 08/05/14 FLUOROGUIDE FOR SPINE INJECT completed 08/05/14 [id number]"INJECTION, METHYLPREDNISOLONE ACETATE, 40 MG" completed 08/05/14 [id number]"LOW OSMOLAR CONTRAST MATERIAL, 100-199 MG/ML IODINE C completed MR-STAPH DNA AMP PROBE completed 07/29/14 MR-STAPH DNA AMP PROBE completed 08/05/14 ROUTINE VENIPUNCTURE completed 08/19/14 PROTHROMBIN TIME completed 08/19/14 ROUTINE VENIPUNCTURE completed 08/22/14 PROTHROMBIN TIME completed 08/22/14 Encounters Encounter Location Date/Time Discharged Recurring [facility] 09/02/14 10:11am Discharged Recurring [facility] 08/26/14 1:00pm Registered Clinic [facility] 08/22/14 1:05pm Registered [facility] 08/19/14 3:50pm Discharged Inpatient [facility] 08/13/14 7:40am Registered [facility] 08/05/14 8:05am Registered [facility] 08/05/14 8:03am Registered [facility] 07/29/14 12:56pm
[2016-12-22 06:14] VITALS: Ht 152.4 cm; Wt 114.1 kg
[2016-12-22 06:25] VITALS: BP 124/58; PULSE 65; RESP 14; TEMP 98.2; O2SAT 94
[2016-12-22] MEDS ORDERED: LR 1,000 ML IV SCH (07:00)
[2016-12-22] MEDS ORDERED: LIDOCAINE 1% (10mg/ml) 2ml SDV INJ ONE (07:00)
[2016-12-22] MEDS ORDERED: LIDOCAINE VISCOUS 2% Oral Soln 15ml UD ONE (07:06)
[2016-12-22] MEDS ORDERED: BENZOCAINE 20% Top. Anesth. SPRAY UD ONE (07:15)
--- NOTE | 2016-12-22 07:21 | ANESPREOP ---
Anesthesia Record Date and Time DATE: 12/22/16 TIME: 07:09 Pre-Op Diagnosis GERD Proposed Surgical Procedure EGD Allergies: Coded Allergies: Penicillins (Verified Allergy, Unknown, RASH, 12/21/16) Sulfa (Sulfonamide Antibiotics) (Verified Allergy, Unknown, ? RASH, ) triamterene (Verified Allergy, Unknown, HIVES, 12/21/16) Ht/Wt/BMI Height: 5 ' 0.00 " Weight: 114.100 kg BMI: 49.1 kg/m2 Vital Signs Date Time Temp Pulse Resp B/P Pulse Ox O2 Delivery O2 Flow Rate FiO2 12/22/16 06:25 98.2 65 14 124/58 94 Room Air Medications Inpatient Medications Current Medications Medications (Trade) Dose Ordered Sig/Beth Start Time Stop Time Status Last Admin Dose Admin Lactated Ringer's (Lactated Ringers) 1,000 ml @ 50 mls/hr Q20H 12/22/16 07:00 Citalopram Hydrobromide (Celexa) 40 Mg Tablet, 40 MG PO DAILY, (Reported) Last Taken: on 12/21/16 Levothyroxine Sodium (Levothyroxine Sodium) 125 Mcg Tablet, 1 TAB PO DAILY, (Reported) Last Taken: on 12/21/16 Lisinopril/Hydrochlorothiazide (Lisinopril-Hctz 10- 12.5 mg Tab) 1 Each Tablet, 1 TAB PO DAILY, (Reported) Last Taken: on 12/21/16 Multivits-Min/FA/Lycopene/Lut (Centrum Silver Tablet) 1 Each Tablet, 1 TAB PO DAILY, (Reported) Last Taken: on 12/21/16 Pramipexole Di-HCl (Mirapex) 1 Mg Tablet, 1 TAB PO DAILY, (Reported) Last Taken: on 12/21/16 Sotalol HCl (Sotalol) 80 Mg Tablet, 1.5 TAB PO DAILY, (Reported) Last Taken: on 12/22/16 0530 Temazepam (Temazepam) 30 Mg Capsule, 1 TAB PO DAILY, (Reported) Last Taken: on 12/21/16 Currently on Beta Yair: Yes Beta Yair Last Taken: 12/22/16 Medical/Surgical History Anesthesia PMH: Reports: *Hypertension, Arthritis (KNEES), Obesity (morbid), Reflux (HX), Sleep Apnea (NO CPAP DOES NOT USE), Thyroid Disease, Denies: * Angina, *Diabetes, *Dyspnea, *AK, Anesthesia Reactions (NO INTUBATION ISSUES/ FELT THOUGH SHE COULDNT BREATH), Asthma, Blood Transfusion Reac, CHF, COPD, CVA/Stroke/TIA, Cancer, Clotting Problems, Deep Vein Thrombosis, Glaucoma, Hepatitis, Hiatal Hernia, Malignant Hyperthermia, Pneumonia, Renal Disease, Rheumatic Fever, Seizures, Tuberculosis Smoking Status: Never smoker Use Chewing Tobacco?: No Second Hand Exposure: No Substance Use Type: does not use Alcohol Intake: none HX of Last Menstrual Period: AROUND AGE 46 Past Surgical History Orthopedic Surgeries: Yes - SANJEEV CTR, R- TKR Abdominal Surgeries: Yes - LAP BANDS PLACED Genitourinary Surgeries: No Cardiac Surgeries: No Endocrine Surgeries: No Reproductive Surgeries: Yes - 3 C-SECTIONS, TUBAL LIGATION Neurological Surgeries: No Ear Surgeries: No Nose Surgeries: No Throat Surgeries: No Other Surgeries: Yes - COLONOSCOPY Anesthesia Adverse Reactions: FOUND other (woke up and couldn't breath) Family Hx of Anesthesia Advers: none Hx of Motion Sickness: No Pertinent Findings EKG Rhythm: Paced Physical Exam Respiratory: Bilat breath sounds equal, Lungs clear Cardiovascular: FOUND Regular rate, rhythm, FOUND No murmur Airway Assessment Mallampati Score: I TMD: 3 Fingerbreadths Neck Extension: Good Overall Assessment: No Airway Concerns ASA: 3 Plan Anesthesia Plan: MAC Discussion Discussed risks/options/alternatives of anesthesia and questions answered. Patient consents. Nursing pain assessment noted. Attestation Statement Prior to the delivery of any anesthetic medication, I examined the patient, developed the plan, obtained the patient's consent and discussed the risk and benefits of the procedure with the patient/guardian. GRISEL OLIVERA CRNA Dec 22, 2016 07:14
[2016-12-22] MEDS ORDERED: ALFENTANIL 500mcg/ml - 2ml INJECTION ONE (07:31)
[2016-12-22] MEDS ORDERED: LIDOCAINE 2% (20mg/ml) 5ml PF SDV ONE (07:31)
[2016-12-22] MEDS ORDERED: MIDAZOLAM 5mg/5ml INJECTION ONE (07:31)
[2016-12-22 08:06] VITALS: BP 148/68; PULSE 45; RESP 16; TEMP 97.1; O2SAT 95
--- NOTE | 2016-12-22 08:11 | ANESPO ---
Post-Op Note Date 12/22/16 Time: 08:10 Status Pt Participated in Evaluation: Pt participated in person Vital Signs Date Time Temp Pulse Resp B/P Pulse Ox O2 Delivery O2 Flow Rate FiO2 12/22/16 06:25 98.2 65 14 124/58 94 Room Air Respiratory Function: Airway patent, Regular respirations Cardiovascular Function: Regular pulse Telemetry Pattern: PAced Mental Status: Alert/oriented Pain Level Intensity: 0 Hydration: IV infusing Complications during Recovery None apparent Follow-Up Instructions Instructions Per Surgeon GRISEL OLIVERA CRNA Dec 22, 2016 08:11
[2016-12-22 08:21] VITALS: BP 133/61; PULSE 64; RESP 19; O2SAT 92
[2016-12-22 08:36] VITALS: BP 133/63; PULSE 68; RESP 17; O2SAT 93
--- NOTE | 2016-12-22 14:14 | OPNOTEF ---
DATE OF OPERATION 12/21/2016 PREOPERATIVE DIAGNOSIS Gastroesophageal reflux disease. POSTOPERATIVE DIAGNOSIS Mild distal esophagitis and mild gastric antritis. OPERATION Esophagogastroduodenoscopy with biopsy for IGNACIO testing from the antrum, biopsies from distal esophagus. SURGEON Db Skelton M.D. DESCRIPTION OF OPERATIVE PROCEDURE The patient was placed in the left lateral position. The gastroscope was introduced into the esophagus without difficulty and advanced into the second portion of the duodenum. The duodenal mucosa appeared normal with a sphincter noted. No evidence of inflammatory changes, mass lesions, ulcerations or other inflammatory changes were noted throughout the duodenum. The pyloric channel was clear with the scope pulled back into the stomach. The antrum was remarkable for mild erythema with biopsy taken for IGNACIO testing. No melissa ulcerations were noted in the antrum or stomach proper. The body of the stomach appeared normal with normal rugae. The scope was retroflexed and the cardia and fundus visualized with no significant abnormalities. The scope was pulled back out of the stomach after suctioning, with the EG junction showing mild erythematous changes at 42 cm. Multiple biopsies were taken of an area of mild inflammatory changes at the EG junction. No melissa ulcerations or erosions were noted. The specimens were sent for pathology. The esophageal mucosa proximal to this showed no evidence of abnormalities with the posterior pharynx and vocal chords clear. There was no evidence of stenosis or narrowing throughout the esophagus or EG junction. No mass lesions were identified. The scope was removed after suctioning, with the vocal chords clear. The patient tolerated the procedure well and was stable post esophagogastroduodenoscopy. FINAL DIAGNOSIS 1. History of gastroesophageal reflux disease. 2. History of lap band procedure. 3. Mild distal esophagitis. 4. Mild antral gastritis with IGNACIO test pending. 5. Biopsies from the distal esophagus for pathology, also pending. [facility]
== END 2016-12-22 08:58 | disposition home or self-care (01) ==
LOC: NSC 05:59
DX: K21.0 Gastro-esophageal reflux disease with esophagitis (principal); K29.60 Other gastritis without bleeding; Z98.84 Bariatric surgery status; Z95.0 Presence of cardiac pacemaker; E66.01 Morbid (severe) obesity due to excess calories; Z68.44 Body mass index [BMI] 60.0-69.9, adult; I10 Essential (primary) hypertension; E78.00 Pure hypercholesterolemia, unspecified; F32.9 Major depressive disorder, single episode, unspecified; G25.81 Restless legs syndrome; R73.03 Prediabetes; Z79.82 Long term (current) use of aspirin; Z79.899 Other long term (current) drug therapy
CPT/HCPCS: 43239; 82948; 87081; J2250; J7120

== ENCOUNTER 2018-01-09 18:26 | Inpatient (IN) ==
[2018-01-09 18:54] VITALS: BMI 34.4
[2018-01-09] MEDS ORDERED: ONDANSETRON 4 MG/2 ML INJECTION IVP PRN (19:46)
[2018-01-09] MEDS ORDERED: Bisacodyl EC TAB 5 MG TABLET PO PRN (19:46)
[2018-01-09] MEDS ORDERED: METOCLOPRAMIDE 10mg/2ml INJECTION IVP PRN (19:46)
[2018-01-09] MEDS ORDERED: TEMAZEPAM 15 MG CAPSULE PO PRN (19:52)
[2018-01-09] MEDS: HYDROCODONE/APAP 7.5 MG/325 MG TABLET PO PRN (20:36)
[2018-01-09] MEDS: D5-1/2NS 1,000 ML IV SCH (20:37)
[2018-01-09] MEDS ORDERED: PRAMIPEXOLE 1 MG PO SCH (21:00)
--- NOTE | 2018-01-09 21:07 | History & Physical Report ---
History of Present Illness Date: 01/09/18 Chief complaint: abdominal pain HPI: 67 yo with sudden onset of abdominal pain last night 2200, mid abdominal, periumbilical, constant, stabbing, non-radiating associated with nausea and vomiting. The pain continued and she came to the ER early this morning and was evaluated. A CT scan showed a 2.4 X 2.4 mass in the kidney which we believe to be chronic. no other abdomalities. The pt continued to worsening and change locations to the RLQ. She went to her PCP's office, Db Skelton, who then sent the to the hospital as a direct admission. Review of Systems - Constitutional Constitutional: Present: chills, fever(s), headache(s) - Cardiovascular Cardiovascular: Absent: chest pain, edema - Respiratory Respiratory: Absent: cough, hemoptysis - Gastrointestinal Gastrointestinal: Present: diarrhea, dyspepsia, nausea, vomiting. Absent: constipation - Musculoskeletal Musculoskeletal: Present: back pain Past Medical History Medical History: Medical History (Last Updated 09/09/17 @ 12:13 by Saranya Arita APRN) Paroxysmal atrial fibrillation (Chronic) After knee surgery. Dr. 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 Surgical History: Pacemaker-2013. Right TKR-2013. Carpal Tunnel Repair 1979 & 1981. X3. T.L. 1984. Lap Band procedure 02/02. The band was eventually released to allow no change of stomach size. Gastric bypass 2016. 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 Family History: Family History (Last Reviewed 08/01/17 @ 10:22 by ELIJAH Palma) Mother , 70 Type 2 diabetes mellitus High blood pressure Kidney failure Lupus Father , 91 High blood pressure Hx of CABG CAD (coronary artery disease) Neurological abnormality Family History: No Significant Family History - Social History Smoking status: Never smoker Medications Home Medications Medication Instructions Recorded Confirmed Type Multivit-Min/FA/Lycopen/Lutein 2 tab PO DAILY #0 08/12/14 01/09/18 History [Centrum Silver Tablet] sotalol 80 mg tablet 80 mg PO BID #45 tab 02/25/17 01/09/18 History Aspirin 325 mg PO DAILY 03/09/17 01/09/18 History Biotin 1,600 mcg PO DAILY 03/09/17 01/09/18 History [place]-3 Fatty Acids/Fish Oil [Fish 3 cap PO DAILY 04/06/17 01/09/18 History Oil 1,200 mg Softgel] Restoril (temazepam) 15 mg capsule See Label Instructions PO HS PRN 09/09/17 Rx #180 cap ascorbate calcium 500 mg tablet 500 mg PO DAILY 09/09/17 01/09/18 History cholecalciferol (vitamin D3) 5,000 5,000 unit PO .every other day cap 09/09/17 01/09/18 History unit capsule ferrous sulfate 325 mg (65 mg 325 mg PO DAILY #30 tab 09/09/17 01/09/18 Rx iron) tablet ultimate britton probiotic 1 cap PO DAILY 09/09/17 01/09/18 History Celexa (citalopram) 40 mg tablet 40 mg PO DAILY #30 tab 12/21/17 01/09/18 Rx levothyroxine 125 mcg tablet 125 mcg PO DAILY #30 tab 12/21/17 01/09/18 Rx Klor-Con Sprinkle (potassium 10 meq PO DAILY #30 cap 12/27/17 01/09/18 Rx chloride ER) 10 mEq capsule pramipexole 1 mg tablet See Label Instructions PO HS #60 12/30/17 01/09/18 Rx tab Ciprofloxacin [Cipro 500 mg] 500 mg PO BID #20 tab 01/09/18 Rx MetroNIDAZOLE [Flagyl] 500 mg PO TID #30 tab 01/09/18 Rx Ondansetron Tab [Zofran Po] 4 mg PO Q6HR #30 tab 01/09/18 Rx Oxycodone/Acetaminophen 5/325 0.5 - 2 tab PO Q6HR PRN #14 tab 01/09/18 Rx [Percocet 5/325] Allergies Allergy/AdvReac Type Severity Reaction Status Date / Time Penicillins Allergy Unknown RASH Verified 01/09/18 18:55 Sulfa (Sulfonamide Allergy Unknown ? RASH Verified 01/09/18 18:55 Antibiotics) triamterene Allergy Unknown HIVES Verified 01/09/18 18:55 Exam Vital Signs: Temperature 96.4 F L 01/09/18 19:08 Pulse Rate 67 01/09/18 19:08 Respiratory Rate 18 01/09/18 19:08 Blood Pressure 122/65 01/09/18 19:08 Pulse Oximetry 100 01/09/18 19:08 Height/Weight/BMI: Height 1.52 m Weight 80 kg Body Mass Index 34.4 - Constitutional Present: no acute distress, well nourished - Routine HEENT Exam ENT: Present: mucous membranes moist - Routine Neck Exam Present: supple - Routine Respiratory Exam Present: CTA bilaterally - Routine Cardiovascular Exam Present: RRR, no murmur - Routine Abdominal Exam Present: normoactive bowel sounds, non distended Comments: tender in the RLQ, no rebound tenderness, milder tenderness in the RUQ> no flank pain - Routine Extremities Exam Present: no edema Results - Labs CBC & Chem 7: 01/09/18 19:20 01/09/18 19:20 Microbiology Results: Microbiology 01/09/18 19:20 Peripheral/Iv Start Blood Culture - Preliminary Culture Initiated - Results Pending 01/09/18 19:27 Peripheral/Iv Start Blood Culture - Preliminary Culture Initiated - Results Pending Assessment and Plan (1) Abdominal pain Current visit: No Status: Acute (2) Paroxysmal atrial fibrillation Problem details: After knee surgery. Dr. Gregory Current visit: No Status: Chronic (3) Status post gastric bypass for obesity Current visit: No Status: Chronic (4) HTN (hypertension) Current visit: No Status: Chronic Assessment and Plan: I am concerned about the pt's presenting symptoms even though the CT was unremarkable. Will repeat labs in am, if pain is worse, would recommend US of RLQ. Cipro & flagyl IV has been ordered, IVF, antiemetics, holding BP meds. supportive care. DVT Prophylaxis: SCD's GI Prophylaxis: Protonix Resuscitation Status: Full Code - Physician Narrative Physician: Kassidy Grace MD Narrative: Date: 01/09/18 Time: 2103 Hospital Course Summary Disclaimer: The visit summary below is not to be considered part of the above Progress Note.
[2018-01-09] MEDS: MetroNIDAZOLE PB 500 MG/100 ML BAG IV SCH (23:01)
[2018-01-09] MEDS: SOTALOL 80 MG PO SCH (23:03)
[2018-01-10] MEDS: HYDROCODONE/APAP 7.5 MG/325 MG TABLET PO PRN ×3 (04:46→19:55)
[2018-01-10] MEDS: MetroNIDAZOLE PB 500 MG/100 ML BAG IV SCH ×3 (06:09→21:47)
[2018-01-10] MEDS: D5-1/2NS 1,000 ML IV SCH ×2 (06:10→15:00)
[2018-01-10] MEDS: LEVOTHYROXINE 125 MCG TABLET PO SCH (06:56)
[2018-01-10] MEDS ORDERED: ACETAMINOPHEN 325 MG TABLET PO PRN (07:37)
[2018-01-10] MEDS ORDERED: ENOXAPARIN 40 MG/0.4 ML INJECTION SQ SCH (09:00)
[2018-01-10] MEDS: SOTALOL 80 MG PO SCH (09:09)
[2018-01-10] MEDS: ASPIRIN 325 MG TABLET PO SCH (09:09)
--- NOTE | 2018-01-10 17:27 | General Surgery Consult Note ---
Consult date: 01/10/18 Attending Physician: Kassidy Grace MD [facility] Medical History (Last Updated 09/09/17 @ 12:13 by Saranya Arita APRN) Paroxysmal atrial fibrillation (Chronic Medical) After knee surgery. Dr. 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 Surgical History: * - 08/23/1977. * - . * Carpal Tunnel Repair 1979. * Carpal Tunnel Repair 1981. * - 1982. * Laparoscopic tubal ligation - 1984. * Lap Band procedure 01/2007. The band was eventually released to allow no change of stomach size. * Colonoscopy - [address] Db Skelton. * Right TKR - 2013. * Pacemaker - 2013. * Laparoscopic gastric bypass - 12/[address] Trell Luke in [facility]. * Left robot-assisted laparoscopic partial nephrectomy - 05/09/[address] Wil Carrillo at [facility] in [place], [place]. Pathology was Clear -cell cancer. Margins negative. Family History: Family History (Last Updated 01/10/18 @ 17:28 by Milton Myers MD) Mother , 70 Lupus Kidney failure High blood pressure Father , 91 CAD (coronary artery disease) Neurological abnormality Hx of CABG High blood pressure - Social History Smoking status: Never smoker Substance use type: does not use Alcohol intake frequency: does not drink Household members: spouse Current occupational status: employed Medications Home Medications Medication Instructions Recorded Confirmed Type Aspirin 325 mg PO DAILY 03/09/17 01/09/18 History [place]-3 Fatty Acids/Fish Oil [Fish 3 cap PO DAILY 04/06/17 01/09/18 History Oil 1,200 mg Softgel] Restoril (temazepam) 15 mg capsule See Label Instructions PO HS PRN 09/09/17 Rx #180 cap ascorbate calcium 500 mg tablet 500 mg PO DAILY 09/09/17 01/09/18 History ultimate britton probiotic 1 cap PO DAILY 09/09/17 01/09/18 History Celexa (citalopram) 40 mg tablet 40 mg PO DAILY #30 tab 12/21/17 01/09/18 Rx levothyroxine 125 mcg tablet 125 mcg PO DAILY #30 tab 12/21/17 01/09/18 Rx Klor-Con Sprinkle (potassium 10 meq PO DAILY #30 cap 12/27/17 01/09/18 Rx chloride ER) 10 mEq capsule Biotin 1 mg PO QAM 01/09/18 01/09/18 History Cholecalciferol (Vitamin D3) 1 cap PO DAILY 01/09/18 01/09/18 History [Vitamin D3] Ciprofloxacin [Cipro 500 mg] 500 mg PO BID #20 tab 01/09/18 01/09/18 Rx Ferrous Sulfate 325 mg PO QAM 01/09/18 01/09/18 History MetroNIDAZOLE [Flagyl] 500 mg PO TID #30 tab 01/09/18 01/09/18 Rx Ondansetron Tab [Zofran Po] 4 mg PO Q6HR #30 tab 01/09/18 01/09/18 Rx Oxycodone/Acetaminophen 5/325 0.5 - 2 tab PO Q6HR PRN #14 tab 01/09/18 01/09/18 Rx [Percocet 5/325] Pramipexole [Mirapex] 1 - 2 mg PO HS 01/09/18 01/09/18 History Sotalol [Betapace] 80 mg PO BID 01/09/18 01/09/18 History Allergies Allergy/AdvReac Type Severity Reaction Status Date / Time Penicillins Allergy Unknown RASH Verified 01/09/18 18:55 Sulfa (Sulfonamide Allergy Unknown ? RASH Verified 01/09/18 18:55 Antibiotics) triamterene Allergy Unknown HIVES Verified 01/09/18 18:55 Review of Systems 10-point ROS: negative except for HPI and the following: - General General: Present: fever (subjective last night), chills - Gastrointestinal Gastrointestinal: Present: nausea - Psychiatric Psychiatric: Present: depression - Endocrine Endocrine: Present: thyroid problems - Hematologic/Lymphatic Hematologic/Lymphatic: Present: use of blood thinners (ASA daily) - Vital Signs Last Vital Signs Temp 98.4 F 01/10/18 16:01 Pulse 67 01/10/18 16:01 Resp 18 01/10/18 16:01 BP 116/65 01/10/18 16:01 Pulse Ox 95 01/10/18 16:01 - Laboratory Result Diagrams: 01/10/18 04:50 01/10/18 04:50 - Microbiogy Microbiology 01/09/18 19:20 Peripheral/Iv Start Blood Culture - Preliminary Culture Initiated - Results Pending 01/09/18 19:27 Peripheral/Iv Start Blood Culture - Preliminary Culture Initiated - Results Pending
[2018-01-10] MEDS: SOTALOL 80 MG TABLET PO SCH (20:01)
[2018-01-10] MEDS: PRAMIPEXOLE 1 MG TABLET PO SCH (20:15)
[2018-01-10] MEDS: TEMAZEPAM 15 MG CAPSULE PO PRN (21:52)
[2018-01-11] MEDS: HYDROMORPHONE 2 MG/ML INJECTION IVP PRN ×5 (03:34→17:16)
[2018-01-11] MEDS: D5-1/2NS 1,000 ML IV SCH (03:35)
[2018-01-11] MEDS: LEVOTHYROXINE 125 MCG TABLET PO SCH (06:07)
[2018-01-11] MEDS: MetroNIDAZOLE PB 500 MG/100 ML BAG IV SCH ×2 (06:12→15:52)
[2018-01-11] MEDS: SOTALOL 80 MG TABLET PO SCH ×2 (09:41→23:04)
[2018-01-11] MEDS: [UNRECOGNIZED DRUG - OTHER] IV SCH ×2 (09:43→23:00)
[2018-01-11] MEDS: D5 IV SCH ×2 (09:43→23:00)
[2018-01-11] MEDS: POTASSIUM CHLORIDE IV SCH ×2 (09:43→23:00)
[2018-01-11] MEDS: ASPIRIN 325 MG TABLET PO SCH (09:44)
[2018-01-11] MEDS ORDERED: NS 1,000 ML IV SCH (11:30)
[2018-01-11] MEDS ORDERED: BUPIVACAINE 0.25% (2.5mg/ml) PF 30ml INJECTION ONE (11:53)
[2018-01-11] MEDS ORDERED: LIDOCAINE 1% (10mg/ml) 30ml SDV INJ ONE (11:54)
--- NOTE | 2018-01-11 12:09 | Anesthesia Preoperative Report ---
Anesthesia Preoperative Record - Date and Time Date: 01/11/18 Preoperative Diagnosis: Abdominal pain, failed outpatient treatment NPO Since Date: 01/10/18 NPO Since Time: 23:00 Allergies/Adverse Reactions: Allergies Allergy/AdvReac Type Severity Reaction Status Date / Time Penicillins Allergy Unknown RASH Verified 01/09/18 18:55 Sulfa (Sulfonamide Allergy Unknown ? RASH Verified 01/09/18 18:55 Antibiotics) triamterene Allergy Unknown HIVES Verified 01/09/18 18:55 - Vital Signs Vital Signs: Temperature 98.6 F 01/11/18 11:53 Pulse Rate 65 01/11/18 11:53 Respiratory Rate 10 01/11/18 11:53 Blood Pressure 129/66 01/11/18 11:53 Pulse Oximetry 93 01/11/18 11:53 Height and Weight: Height 5 ft Weight 80.5 kg Body Mass Index 34.4 - Medications Inpatient Medications: Current Medications Acetaminophen (Tylenol) 325 - 650 mg PO Q5H PRN PRN Reason: Discomfort Last Admin: 01/10/18 07:40 Dose: 650 mg Hydrocodone Bitart/Acetaminophen ([place] 7.5/325) 1 tab PO Q6H PRN PRN Reason: Pain Last Admin: 01/10/18 19:55 Dose: 1 tab Aspirin (Asa) 325 mg PO DAILY COUNT INCLUDES THE [facility] Last Admin: 01/11/18 09:44 Dose: Not Given Bisacodyl (Dulcolax) 5 mg PO DAILY PRN PRN Reason: Constipation Enoxaparin Sodium (Lovenox) 40 mg SQ DAILY COUNT INCLUDES THE [facility] Last Admin: 01/10/18 09:08 Dose: 40 mg Hydromorphone HCl (Dilaudid) 0.5 mg IVP Q2H PRN PRN Reason: Pain Last Admin: 01/11/18 09:47 Dose: 0.5 mg Metronidazole/Sodium Chloride (Flagyl Iv Premix) 500 mg in 100 mls @ 100 mls/ hr IV Q8H COUNT INCLUDES THE [facility] Last Infusion: 01/11/18 07:12 Dose: Infused Ciprofloxacin Lactate (Cipro 400 Mg Premix) 400 mg in 200 mls @ 200 mls/hr IV Q12H COUNT INCLUDES THE [facility] Last Admin: 01/11/18 09:44 Dose: 200 mls/hr Potassium Chloride 40 meq/ (Dextrose/Sodium Chloride) 1,020 mls @ 100 mls/hr IV .[id number] COUNT INCLUDES THE [facility] Last Admin: 01/11/18 09:43 Dose: 100 mls/hr Sodium Chloride (Normal Saline) 1,000 mls @ 50 mls/hr IV .Q20H JESSICA Levothyroxine Sodium (Synthroid) 125 mcg PO ACB COUNT INCLUDES THE [facility] Last Admin: 01/11/18 06:07 Dose: Not Given Metoclopramide HCl (Reglan) 5 mg IVP Q6H PRN Ondansetron HCl (Zofran) 4 mg IVP Q6H PRN PRN Reason: Nausea &/or vomiting Pramipexole Dihydrochloride (Mirapex) 1 - 2 mg PO HS JESSICA Last Admin: 01/10/18 20:15 Dose: 1 mg Sotalol HCl (Betapace) 80 mg PO BID COUNT INCLUDES THE [facility] Last Admin: 01/11/18 09:41 Dose: 80 mg Temazepam (Restoril) 15 - 30 mg PO HS PRN PRN Reason: insomnia Last Admin: 01/10/18 21:52 Dose: 15 mg Home Medications: Home Medications Medication Instructions Recorded Confirmed Type Aspirin 325 mg PO DAILY 03/09/17 01/09/18 History [place]-3 Fatty Acids/Fish Oil [Fish 3 cap PO DAILY 04/06/17 01/09/18 History Oil 1,200 mg Softgel] Restoril (temazepam) 15 mg capsule See Label Instructions PO HS PRN 09/09/17 Rx #180 cap ascorbate calcium 500 mg tablet 500 mg PO DAILY 09/09/17 01/09/18 History ultimate britton probiotic 1 cap PO DAILY 09/09/17 01/09/18 History Celexa (citalopram) 40 mg tablet 40 mg PO DAILY #30 tab 12/21/17 01/09/18 Rx levothyroxine 125 mcg tablet 125 mcg PO DAILY #30 tab 12/21/17 01/09/18 Rx Klor-Con Sprinkle (potassium 10 meq PO DAILY #30 cap 12/27/17 01/09/18 Rx chloride ER) 10 mEq capsule Biotin 1 mg PO QAM 01/09/18 01/09/18 History Cholecalciferol (Vitamin D3) 1 cap PO DAILY 01/09/18 01/09/18 History [Vitamin D3] Ciprofloxacin [Cipro 500 mg] 500 mg PO BID #20 tab 01/09/18 01/09/18 Rx Ferrous Sulfate 325 mg PO QAM 01/09/18 01/09/18 History MetroNIDAZOLE [Flagyl] 500 mg PO TID #30 tab 01/09/18 01/09/18 Rx Ondansetron Tab [Zofran Po] 4 mg PO Q6HR #30 tab 01/09/18 01/09/18 Rx Oxycodone/Acetaminophen 5/325 0.5 - 2 tab PO Q6HR PRN #14 tab 01/09/18 01/09/18 Rx [Percocet 5/325] Pramipexole [Mirapex] 1 - 2 mg PO HS 01/09/18 01/09/18 History Sotalol [Betapace] 80 mg PO BID 01/09/18 01/09/18 History Is Patient on Beta Yair?: Yes - Medical History Respiratory: Reports: Bronchitis (20-30 YEARS AGO), Pneumonia (hx of) Cardiovascular: Reports: Abnormal EKG, Arrhythmia (A-FIB hx, rate controlled with sotalol), Heart Murmur (Every now and then), Hypertension (hx of) Gastrointestional: Reports: Nausea or Vomiting Present, Gastroesophageal Reflux Disease (PAST HX, none since lost 100#) Neuro/Musculoskeletal: Reports: Back Problems, Depression, Muscle Weakness ( right knee) Renal/Endocrine: Reports: Thyroid Disease (HYPO) Other History: Reports: Anesthesia Reactions (TROUBLE BREATHING AND LOW HEART RATE WHEN WAKING UP), Cancer (kidney cancer) - Surgical History HEENT Surgeries: Reports: Eye Surgery (left cataract removed) Cardiac Surgeries/Treatments: Reports: Pacemaker (sick sinus syndrom hx) Endocrine Surgery/Treatments: Reports: Other (PARTIAL NEPHRECTOMY) GI Surgery/Treatments: Reports: Colonoscopy, Other (GASTRIC BAND, GASTRIC SLEEVE , GASTRIC BYPASS) Surgery/Treatment: REPORT: Other (PARTIAL NEPHRECTOMY) Musculoskeletal Surgery/Tx: Reports: Carpal Tunnel Release (SANJEEV), Total Knee Replacement (RIGHT) Reproductive Surgery/Treatment: Reports: Section (3), Tubal Ligation Anesthesia Reactions: None Hx Family Anesthesia Reaction: No History of Motion Sickness: No - Social History Smoking Status: Never smoker Hx Chewing Tobacco Use: No Second Hand Exposure: No Substance Use Type: does not use Alcohol Intake Frequency: does not drink - Pertinent Findings Laboratory: CBC and BMP 01/11/18 04:41 01/11/18 04:41 BMP 01/11/18 04:41 Sodium 141 Potassium 3.4 L Chloride 105 Carbon Dioxide 29 BUN 6.0 L D Creatinine 0.5 L Glucose 122 H Calcium 8.2 L Liver Function 01/11/18 Range/Units 04:41 Total Bilirubin 0.50 (0.20-1.30) MG/DL AST 21 (14-36) U/L ALT 24 (1-35) U/L Alkaline Phosphatase 65 (38-126) U/L Albumin 3.2 L (3.5-5.0) g/dL EKG: Sinus Rhythm - Physical Exam Respiratory Exam: Present: lungs clear, bilateral breath sounds equal Cardiovascular Exam: Present: regular rate and rhythm - Airway Assessment Mallampati Score: II TMD: 3 Fingerbreadths Neck Extension: good Overall Assessment: no airway concerns - ASA ASA Score: 3 - Plan Anesthesia: General Inhalation Gases - Discussion Discussion: Discussed risks/options/alternatives of anesthesia and questions answered. Patient consents. Nursing pain assessment noted. Present for Discussion: spouse Attestation Statement: Prior to the delivery of any anesthetic medication, I examined the patient, developed the plan, obtained the patient's consent and discussed the risk and benefits of the procedure with the patient/guardian. - Additional Information Seen by Anesthesia: Yes
[2018-01-11] MEDS ORDERED: FentaNYL 250 MCG/5 ML INJECTION ONE (12:32)
[2018-01-11] MEDS ORDERED: ROCURONIUM 50 MG/5 ML INJECTION IVP ONE (12:34)
[2018-01-11] MEDS ORDERED: PROPOFOL 20 ML ONE (12:34)
[2018-01-11] MEDS ORDERED: LIDOCAINE 2% (100mg/5mL) 5ml PF SDV ONE (12:34)
[2018-01-11] MEDS ORDERED: LIDOCAINE 4% Laryng-O-Jet (160mg/4mL) KIT MM ONE (12:34)
[2018-01-11] MEDS ORDERED: METOCLOPRAMIDE 10mg/2ml INJECTION ONE (12:51)
[2018-01-11] MEDS ORDERED: DEXAMETHASONE 4 MG/ML INJECTION ONE (12:51)
[2018-01-11] MEDS ORDERED: HYDRALAZINE 20 MG/ML INJECTION ONE (13:32)
[2018-01-11] MEDS ORDERED: LIDO 1% 30ml/BUPIV 0.25%-EPI 1:200T 30ml MIXTURE (60ml total) ID ONE (14:00)
--- NOTE | 2018-01-11 15:32 | General Surgery Procedure Note ---
Date of Procedure: 01/11/18 Surgeon: Lucia Anesthesia: General Inhalation Gases ASA Score: 3 Postoperative Diagnosis: Acute nonperforated appendicitis Procedure: Lap appy
--- NOTE | 2018-01-11 16:19 | Anesthesia Postoperative Note ---
- Date and Time Date: 01/11/18 Time: 16:20 - Status Patient Participated in Evaluation: Patient Participated in Person Vital Signs: Temperature 97.2 F 01/11/18 15:25 Pulse Rate 68 01/11/18 16:15 Respiratory Rate 14 01/11/18 16:15 Blood Pressure 128/58 01/11/18 16:15 Pulse Oximetry 96 01/11/18 16:15 Respiratory Function: Airway Patent Cardiovascular Function: Regular Pulse EKG: Sinus Rhythm Mental Status: Alert and Oriented Pain Intensity: 3 Hydration: IV Infusing Complications During Recover: None Apparent - Follow-Up Instructions Instructions: Per Surgeon
[2018-01-11] MEDS ORDERED: KETOROLAC 15 MG/ML INJECTION IVP PRN (17:01)
[2018-01-11] MEDS ORDERED: HYDROMORPHONE 2 MG/ML INJECTION IVP PRN (17:01)
[2018-01-11] MEDS: HYDROCODONE/APAP 7.5 MG/325 MG TABLET PO PRN ×2 (17:20→23:10)
--- NOTE | 2018-01-11 20:08 | Progress Note ---
- Date 01/11/18 Subjective: The patient was seen this morning in her room. She stated she was feeling about the same with continued right-sided abdominal pain. She denied any chest pain, palpitations or shortness of breath. She was feeling hungry. Objective Vital signs: Temperature 96.3 F L 01/11/18 18:20 Pulse Rate 71 01/11/18 18:20 Respiratory Rate 14 01/11/18 18:35 Blood Pressure 119/62 01/11/18 18:20 Pulse Oximetry 96 01/11/18 18:20 Height/Weight/BMI: Height 1.52 m Weight 80.5 kg Body Mass Index 34.4 Comments: GEN-alert, oriented, no acute distress HEENT-sclera anicteric, oropharynx is moist NECK-supple CV-regular rate and rhythm CHEST-clear to auscultation bilaterally ABD-soft, tender throughout, but more so in the right mid to lower abdomen. Positive bowel sounds. -no Whitney EXT-no edema NEURO-no focal deficits SKIN-warm and dry and without rashes Results - Labs CBC & Chem 7: 01/11/18 04:41 01/11/18 04:41 Labs: Bands 0, neutrophils 82% Microbiology Results: Microbiology 01/09/18 19:20 Peripheral/Iv Start Blood Culture - Preliminary No Growth After 2 Days 01/09/18 19:27 Peripheral/Iv Start Blood Culture - Preliminary No Growth After 2 Days Assessment and Plan (1) HTN (hypertension) Current visit: No Status: Chronic (2) Status post gastric bypass for obesity Current visit: No Status: Chronic (3) Paroxysmal atrial fibrillation Problem details: After knee surgery. Dr. Gregory Current visit: No Status: Chronic (4) Abdominal pain Current visit: No Status: Inactive Assessment and Plan: Impression Right lower quadrant pain secondary to appendicitis History of gastric bypass History of paroxysmal A. fib Hypertension-well controlled Left kidney mass noted on CT scan in a patient with history of partial nephrectomy for clear cell cancer. Plan The patient underwent laparoscopic appendectomy this afternoon with Dr Myers and did well. Antibiotics have been discontinued post appendectomy Continue home medications DC IV fluids when taking by mouth well CBC and basic metabolic profile tomorrow Probable discharge tomorrow if she continues to do well Discussed withDr Myers The patient will need follow-up with her urologist regarding findings of mass on left kidney on CT scan - Physician Narrative Narrative: Date: 01/11/18 Time: 2001 Hospital Course Summary Disclaimer: The visit summary below is not to be considered part of the above Progress Note.
--- NOTE | 2018-01-11 20:16 | Consultation ---
DATE OF CONSULTATION 01/10/2018 REASON FOR CONSULTATION Right lower quadrant abdominal pain. CONSULTING PHYSICIAN Milton Myers MD REQUESTING PHYSICIAN Dr. Kassidy Grace IMPRESSION 1. Right-sided abdominal pain - I think that this likely represents acute appendicitis. Review of the CT scan shows a candidate appendix which is dilated and has some inflammation of the surrounding fat. This would also fit with her clinical picture of an elevated white count and right-sided abdominal pain. I think this was more difficult to diagnose given the patient's abnormal anatomy with position of the appendix and cecum more in the right upper quadrant and right side of the abdomen than usual. 2. Persistent leukocytosis. RECOMMENDATIONS 1. I did discuss the possibility of laparoscopic appendectomy with Mylene and her . I did not feel that surgery should be performed tonight since she was not n.p.o. and had received a dose of Lovenox this morning. 2. Continue IV antibiotics. Cipro and Flagyl would be appropriate management for potential appendicitis, especially given her penicillin allergy. 3. I will let her have clear liquids this evening since she is not needing an emergent operation. I will make her n.p.o. at midnight. 4. I told the patient that I would reevaluate her white count and clinical situation tomorrow. It is possible that she may only need nonoperative management for her appendicitis. If further leukocytosis persists or she continues to have abdominal pain tomorrow then she will likely need to be taken to the operating room. HISTORY OF PRESENT ILLNESS Mylene is a 67-year-old female who began to have abdominal pain around 10:00 p.m. on Tuesday evening. She said it originally felt like a stomachache and she rated it 5 to 6 out of 10 in severity. She was able to go to bed but was awakening every few hours with abdominal pain. Her pain worsened and gradually moved to the right side of the abdomen. Early in the morning on Tuesday ( yesterday) she presented to the emergency department. The presumed diagnosis at discharge was diverticulitis and she was sent home with oral pain medication , Cipro, and Flagyl. On Tuesday afternoon she followed up with Saranya Arita APRN, who had ordered repeat laboratory studies. The patient's white blood cell count had increased from 15.9 to 21.1. The patient was then referred to the hospitalist for failed outpatient management. She was admitted to the hospital last evening to the hospitalist service. Dr. Grace was evaluating the patient today and felt like there may be other etiologies for the patient's abdominal pain since she had had a prior colonoscopy that failed to reveal diverticulosis. Surgical consult was placed. The patient says that her pain is better today than yesterday. She still does have pain in the right abdomen with movement. She is on [place] 7.5 tablets and did receive one tablet at 12:41 p.m. PAST MEDICAL HISTORY, PAST SURGICAL HISTORY, MEDICATIONS, ALLERGIES, SOCIAL HISTORY, FAMILY HISTORY, VITAL SIGNS, LABORATORY DATA, See electronic consultation note. PHYSICAL EXAMINATION GENERAL: The patient is awake and alert, in no acute distress. HEENT: Sclerae clear. Extraocular muscles intact. NECK: Supple with a midline trachea. No lymphadenopathy or thyromegaly are noted. HEART: Regular rate and rhythm. LUNGS: Clear to auscultation bilaterally. ABDOMEN: Soft, tender in the right abdomen in both the upper and lower quadrants. The patient has numerous scars of the anterior abdominal wall with numerous laparoscopic incisions as well as a lower midline incision. All of her incisions are well healed. EXTREMITIES: No clubbing, cyanosis or edema. NEUROLOGIC: Cranial nerves II-XII are grossly intact. PSYCHIATRIC: Normal mood and affect. PATIENT EDUCATION The details, risks and benefits of laparoscopic appendectomy were discussed with the patient and her . The discussion included but was not limited to bleeding, infection, injury to intraabdominal contents, possible negative appendectomy, possible conversion to an open procedure, and complications of anesthesia. I did explain the possibility of conservative management instead of operative management for her appendicitis. She said that if symptoms persisted she would rather have her appendix removed. Thank you for allowing me to participate in Mylene's care. RIO
[2018-01-11] MEDS: PRAMIPEXOLE 1 MG TABLET PO SCH (23:12)
[2018-01-11] MEDS: TEMAZEPAM 15 MG CAPSULE PO PRN (23:17)
[2018-01-12] MEDS: HYDROCODONE/APAP 7.5 MG/325 MG TABLET PO PRN ×2 (03:30→10:59)
[2018-01-12 05:35] VITALS: TEMP 97.8
[2018-01-12] MEDS: LEVOTHYROXINE 125 MCG TABLET PO SCH (06:30)
[2018-01-12] MEDS: [UNRECOGNIZED DRUG - OTHER] IV SCH (07:57)
[2018-01-12] MEDS: POTASSIUM CHLORIDE IV SCH (07:57)
[2018-01-12] MEDS: D5 IV SCH (07:57)
[2018-01-12 08:03] VITALS: O2SAT 97
[2018-01-12] MEDS: ASPIRIN 325 MG TABLET PO SCH (08:06)
[2018-01-12] MEDS: SOTALOL 80 MG TABLET PO SCH (08:06)
[2018-01-12 09:35] VITALS: RESP 65
[2018-01-12 09:37] VITALS: BP 109/56; PULSE 64
--- NOTE | 2018-01-12 10:40 | Operative Note ---
DATE OF OPERATION 01/11/2018 SURGEON Milton Myers MD PREOPERATIVE DIAGNOSIS Right-sided abdominal pain - suspected appendicitis. POSTOPERATIVE DIAGNOSIS Acute nonperforated appendicitis. PROCEDURE Laparoscopic appendectomy. ANESTHESIA General. ASA CLASS 3 INDICATIONS The patient is a 67-year-old female who was admitted to the hospital for abdominal pain and failed outpatient management. Her admission had been for suspected diverticulitis. Eventually the diagnosis of diverticulitis was questioned and a surgical consultation was obtained. The suspicion of acute appendicitis was raised. When the patient continued to have leukocytosis and pain in the right abdomen, laparoscopic appendectomy was recommended to her. FINDINGS The appendix was acutely inflamed with significant surrounding inflammation as well. There was no evidence of perforation of the appendix though it was rather dilated. No other visualized abnormalities were noted. The gallbladder appeared grossly normal. There were no significant adhesions to the anterior abdominal wall. DESCRIPTION OF PROCEDURE After informed consent was obtained the patient was taken to the operating room and placed in the supine position. General anesthesia was administered by the anesthesia team. The patient's abdomen was then prepped and draped in the usual sterile fashion. Local was used to anesthetize the skin above the umbilicus. A small skin incision was made with a scalpel. The base of the umbilicus was elevated with a Jennifer clamp. A Veress needle was inserted and was used to obtain pneumoperitoneum. A 5 mm port was then placed followed by an angled laparoscope. The laparoscope was used to guide placement of a 5 mm port in the suprapubic region and another 5 mm port in the upper midline. With ports in position, attention was turned to the right abdomen. The appendix was exposed. Blunt dissection with laparoscopic instruments and suction was used to expose the entire course of the appendix. An additional 12 mm port was placed in the left upper quadrant based on the higher than normal location of the cecum and appendix. This port was also placed under direct vision. Careful dissection was performed in the area of the base of the appendix. The mesoappendix was dissected off of the base of the appendix laterally and a window was made in the mesoappendix medially. Eventually the base of the appendix was able to be dissected free circumferentially. It was then divided with a laparoscopic stapler. Vascular reloads of the stapler were then used to divide the mesoappendix. Multiple firings of the stapler were required given the abnormal location of the mesoappendix. There was some minimal bleeding from the edge of the cecum and this was controlled with a laparoscopic clip. The last portion of the mesoappendix had also been clipped prior to division with scissors. The appendix was placed within an endoscopic retrieval bag and removed from the larger left upper quadrant port site. Port was replaced and the right upper quadrant and right abdomen were irrigated and suctioned free of fluid. Two liters of irrigation was used. Once hemostasis was assured the staple lines were inspected. Staple lines remained intact and hemostatic. The fascia of the larger left upper quadrant port site was closed with a eepiqw-it-vegfk stitch of 0 Vicryl suture. Pneumoperitoneum was evacuated after additional ports were removed under direct vision. All of the skin incisions were closed with buried interrupted 4-0 Monocryl stitches. Benzoin, Steri-Strips, and sterile Band-Aids were applied as a dressing. RIO
--- NOTE | 2018-01-12 14:51 | Discharge Summary ---
Discharge Information Date of admission: 01/10/18 16:15 Anticipated date of discharge: 01/12/18 Attending Physician: Kassidy Grace MD Primary care physician: Db Skelton MD Consults: 01/10/18 14:54 Physician Consult [CONS] Routine Consulting Provider: Milton Myers Reason For Exam: RLQ abd pain Ordering Provider has Notified Eyewear Manufacturing Supervisor: No - Discharge Diagnosis (1) HTN (hypertension) Status: Chronic (2) Status post gastric bypass for obesity Status: Chronic (3) Paroxysmal atrial fibrillation Status: Chronic (4) Abdominal pain Status: Inactive Right lower quadrant pain secondary to appendicitis Leukocytosis History of gastric bypass History of paroxysmal A. fib Hypertension-well controlled Left kidney mass noted on CT scan in a patient with history of partial nephrectomy for clear cell cancer. Cholelithiasis without pericholecystic inflammation - Procedures Procedures: Laparoscopic appendectomy on 01/11/[address] Milton Myers - Laboratory Labs: 01/12/18 06:23 01/12/18 06:23 Laboratory Tests 01/09/18 01/10/18 01/10/18 19:20 04:50 04:50 WBC 23.3 H D 22.5 H Plasma Lactate Procalcitonin 0.16 01/10/18 01/11/18 01/12/18 04:50 04:41 06:23 WBC 15.0 H 16.9 H Plasma Lactate 1.3 Procalcitonin - Microbiology Microbiology 01/09/18 19:20 Peripheral/Iv Start Blood Culture - Preliminary No Growth After 2 Days 01/09/18 19:27 Peripheral/Iv Start Blood Culture - Preliminary No Growth After 2 Days - Radiology Radiology: CT abdomen and pelvis done on 01/09/2018 #1 a 2.4 x 2.4 cm irregular hypodense mass involving the cortex of the left kidney which may represent post-ablative or biopsy related changes involving known renal mass. #2 postsurgical changes of gastric bypass #3 cholelithiasis without pericholecystic inflammation #4 minimal pelvic ascites #5 small hiatal hernia #6 addendum patient has significant right lower quadrant pain requiring narcotic pain medications. There is a fluid-filled tubular structure in the right lower quadrant measuring 1.4 cm in diameter with some slight adjacent fat stranding. The beginning and end of this structure are difficult to visualize but this could represent an abnormally enlarged inflamed appendix or a loop of inflamed small bowel. There are also numerous calcified densities within the bowel in this location probably representing ingested calcium-containing medications. A normal caliber appendix is not seen. History of Present Illness HPI: 67 yo with sudden onset of abdominal pain last night 2200, mid abdominal, periumbilical, constant, stabbing, non-radiating associated with nausea and vomiting. The pain continued and she came to the ER early this morning and was evaluated. A CT scan showed a 2.4 X 2.4 mass in the kidney which we believe to be chronic. no other abdomalities. The pt continued to worsening and change locations to the RLQ. She went to her PCP's office, Db Skelton, who then sent the to the hospital as a direct admission. Objective Vital signs: Temperature 97.8 F 01/12/18 03:00 Pulse Rate 64 01/12/18 09:36 Respiratory Rate 65 H 01/12/18 09:33 Blood Pressure 109/56 01/12/18 09:36 Pulse Oximetry 97 01/12/18 08:01 Height/Weight/BMI: Height 1.52 m Weight 81 kg Body Mass Index 34.4 Hospital Course This is a general summary of the patient's hospital course. For more details refer to the complete medical record. Hospital course: The patient was a direct admit on the evening of 01/09/2018 for right lower quadrant pain failing outpatient treatment with antibiotics for possible diverticulitis. The patient was admitted and placed on IV antibiotics and pain medication. Dr. Myers was consulted for abdominal pain, possible appendicitis. He did evaluate the patient and reviewed the CT scan with radiology and there was concern for appendicitis. The patient did have laparoscopic appendectomy on the afternoon of 01/11/2018 and did well. Antibiotics were discontinued after appendectomy. On 01/12/2018 the patient is up walking in the halls and feels well. She is eating and drinking well. She has had a normal bowel movement. She feels ready for dismissal to home. Exam she is alert and in no acute distress. Chest is clear to auscultation. Cardiovascular reveals a regular rate and rhythm. Abdomen is soft with minimal tenderness. Bowel sounds are normal. Extremities are free of edema. The patient will be discharged to home with plans for follow-up in [address] Myers. She is to resume her usual home medications. She's been given a prescription for [place] 7.5 one every 6 hours as needed for pain. She was noted to have what appeared to be an irregular hypodense mass in the left kidney. She has history of partial nephrectomy for clear cell carcinoma. I did ask the patient to follow-up with her urologist and take a copy of her CT scan on a disc for review. She states understanding of this. Time spent with patient: discharge greater than 30 minutes Resuscitation Status: Full Code Discharge Plan - Discharge Disposition Disposition: Discharged Home, Self-Care *Condition: Stable Reason For Visit (Visit label in EMR): Acute Appendicitis - Discharge Medications *Discharge Medications: New Hydrocodone/APAP 7.5/325 [[place] 7.5/325] 1 tab PO Q6H PRN #15 tab PRN Reason: Pain Continue Aspirin 325 mg PO DAILY [place]-3 Fatty Acids/Fish Oil [Fish Oil 1,200 mg Softgel] 3 cap PO DAILY Ondansetron Tab [Zofran Po] 4 mg PO Q6HR #30 tab Oxycodone/Acetaminophen 5/325 [Percocet 5/325] 0.5 - 2 tab PO Q6HR PRN #14 tab PRN Reason: Pain Cholecalciferol (Vitamin D3) [Vitamin D3] 1 cap PO DAILY Sotalol [Betapace] 80 mg PO BID Biotin 1 mg PO QAM Pramipexole [Mirapex] 1 - 2 mg PO HS Ferrous Sulfate 325 mg PO QAM ultimate britton probiotic 1 cap PO DAILY ascorbate calcium 500 mg tablet 500 mg PO DAILY levothyroxine 125 mcg tablet 125 mcg PO DAILY #30 tab Restoril (temazepam) 15 mg capsule See Label Instructions PO HS PRN #180 cap PRN Reason: insomnia Celexa (citalopram) 40 mg tablet 40 mg PO DAILY #30 tab Klor-Con Sprinkle (potassium chloride ER) 10 mEq capsule 10 meq PO DAILY #30 cap Discontinued Ciprofloxacin [Cipro 500 mg] 500 mg PO BID #20 tab MetroNIDAZOLE [Flagyl] 500 mg PO TID #30 tab - Discharge Packet/Instructions *Diet: You may resume your usual diet as tolerated. Start with a bland diet in case you have nausea or vomiting. *Activity: You may resume your usual activity as your incision pain allows. *Pain Management/Treatment: For management of your postoperative pain consider the following: - If your pain is mild you can use [id number] Tylenol ( acetaminophen) to help with your pain unless otherwise instructed by another physician. - You may take [id number] Ibuprofen IN ADDITION TO Tylenol or pain pills to help with your pain for up to 2 weeks unless otherwise instructed by another physician. - For more severe pain you can use the precribed pain pills. EACH PILL contains 325 mg of acetaminophen. - The MAXIMUM DOSE of acetaminophen should be no more than 3,250 mg in a 24 hour period from BOTH over -the-counter Tylenol (acetaminophen) and your pain pills. *Wound Care: Your incisions have been covered with Steri-Strips (surgical tape) and sterile bandages. - You may remove you bandages after 24 hours. Leave the Steri-Strips in place until they fall off on their own. - You may shower after 24 hours. - No tub baths or swimming for 2 weeks. Additional Instructions: Follow-up with Dr. Myers in about 2 weeks. - Please call Dr. Myers's office at [phone] to schedule your post-op appointment time (Dial 3 when the recording starts). - Do not drive, operate machinery, drink alcohol, or sign important papers for 24 hours or while taking pain pills. -Take disc with copy of your CT scan with you to follow-up with your urologist regarding mass seen on left kidney. *Expected Signs/Symptoms: Expect some pain at your incision sites and possibly in your shoulders. You may have some nausea/vomiting after your anesthetic or with pain pills taken on an empty stomach. *Notify Physician if: Contact Dr. Myers if you have concerns or if any of the following occur: - Your pain is not adequately controlled. - You have persistent nausea or vomiting for more than 24 hours. - You have a fever over 101 degrees. - You develop redness, swelling, increasing pain, excessive bleeding, or excessive/foul smelling drainage from your incision site. - You develop yellowing of the skin or eyes. - You have pain and/or swelling in your feet, calves, or legs. - You have difficulty breathing, abnormal cough, or chest pain. *During Business Hours Contact: *In the event of an emergency, call 911 or seek medical care at the nearest emergency room.*. Call Dr. Myers's office at [phone]. *After Business Hours Contact: After hours, please call [facility] at [phone] and have the screwdown operator page Dr. Myers or the covering surgeon. *Pending Lab/Results: Will review at F/U Appt - Referrals/Follow Up *Referrals/Follow Up: Milton Myers MD [Physician] - 2 Weeks - Patient Handouts - Dismissal Complete Discharge Instructions are:: Complete Physician Narrative - Narrative Attestation Narrative: Date: 01/12/18 Time: 2633
--- NOTE | 2018-01-13 07:04 | Progress Note ---
DATE OF VISIT 01/12/2018 REASON FOR VISIT Postoperative followup. SUBJECTIVE Mylene is feeling much better following her appendectomy yesterday. She has been tolerating a regular diet. She has met discharge criteria. OBJECTIVE VITAL SIGNS: Afebrile with stable vitals on room air. GENERAL: The patient is awake, alert, in no acute distress. ABDOMEN: Soft, appropriately tender. Her bandages are clean, dry and intact. She is less tender in the right abdomen today. IMPRESSION Postop day #1 status post laparoscopic appendectomy for acute nonperforated appendicitis. PLAN 1. Okay for dismissal from a surgical standpoint. 2. See discharge instructions already entered into the computer. 3. I have sent her prescription for 15 hydrocodone tablets to the pharmacy. RIO
== END 2018-01-12 15:28 | disposition home or self-care (01) | DRG 343 ==
LOC: MED → SUATTDRO 19:46
PROVIDERS: ADMIT Internal Medicine; ATTEND Internal Medicine

== ENCOUNTER 2018-03-29 13:31 | Inpatient (IN) ==
--- NOTE | 2018-03-29 13:38 | Emergency Department Report ---
Nausea/Vomiting/Diarrhea HPI - General Stated complaint: GI infection Time Seen by Provider: 03/29/18 13:37 Source: patient Mode of arrival: ambulatory Limitations: no limitations - History of Present Illness HPI Narrative: Patient is a 67-year-old female presents to the ER for evaluation of diarrhea, infection. Patient's had diarrhea now for 2 weeks, with intermittent crampy abdominal pain. Patient is been followed by her primary medical physician. Patient repeat laboratories showed increasing white count, primary care physician is become concerns the patient was referred to the ER for further evaluation. - Related Data Home Medications Medication Instructions Recorded Confirmed Aspirin 325 mg PO DAILY 03/09/17 04/05/18 [place]-3 Fatty Acids/Fish Oil [Fish 3 cap PO DAILY 04/06/17 04/05/18 Oil 1,200 mg Softgel] ultimate britton probiotic 1 cap PO DAILY 09/09/17 04/05/18 Pramipexole [Mirapex] 1 mg PO HS 01/09/18 04/05/18 Sotalol [Betapace] 80 mg PO BID 01/09/18 04/05/18 cyanocobalamin (vit B-12) 1,000 1,000 mcg PO DAILY 03/08/18 04/05/18 mcg capsule folic acid 800 mcg tablet 0.8 mg PO DAILY 03/08/18 04/05/18 Cholecalciferol (Vitamin D3) 5,000 unit PO DAILY 03/29/18 04/05/18 [Vitamin D3] Melatonin Tab [Melatonin] 1 mg PO HS 03/29/18 04/05/18 Multivitamin [One Daily] 1 each PO DAILY 03/29/18 04/05/18 Temazepam [Restoril] 30 mg PO HS 03/29/18 04/05/18 Previous Rx's Medication Instructions Recorded Celexa (citalopram) 40 mg tablet 40 mg PO DAILY #30 tab 12/21/17 levothyroxine 125 mcg tablet 125 mcg PO DAILY #30 tab 12/21/17 ferrous sulfate 325 mg (65 mg 325 mg PO QAM #90 tab 01/16/18 iron) tablet Cholestyramine/Aspartame 4 g PO Q6H PRN #1 bottle 04/03/18 [Cholestyramine Light Packet] Diphenoxylate/Atropine [Lomotil] 1 tab PO QID PRN #20 tab 04/03/18 Vancomycin HCl 125 mg PO Q6HR 10 Days #120 syringe 04/03/18 Allergies Allergy/AdvReac Type Severity Reaction Status Date / Time Penicillins Allergy Unknown RASH Verified 04/05/18 13:48 Sulfa (Sulfonamide Allergy Unknown ? RASH Verified 04/05/18 13:48 Antibiotics) triamterene Allergy Unknown HIVES Verified 04/05/18 13:48 Review of Systems Constitutional: Reports: fever, weakness. Denies: chills Eyes: Denies: eye discharge, vision change ENT: Denies: ear pain, throat pain, dental pain Cardiovascular: Denies: chest pain, palpitations, dyspnea on exertion Respiratory: Denies: cough, dyspnea, wheezes Gastrointestinal: Reports: abdominal pain, nausea, diarrhea Genitourinary: Denies: dysuria, frequency Neurological: Denies: headache, weakness Psychiatric: Denies: anxiety, depression Endocrine: Denies: fatigue Hematological/Lymphatic: Denies: easy bleeding Allergic/Immunologic: Denies: facial swelling PFSH Patient Stated Medical History Cataracts Yes: SANJEEV EARLY Cardiac Arrhythmia Yes: A-FIB hx, rate controlled with sotalol Heart Murmur Yes: Every now and then Hypertension Yes: hx of Bronchitis Yes: 20-30 YEARS AGO Pneumonia Yes: hx of Sleep Apnea No: Resolved after losing 100 pounds Gastroesophageal Reflux Yes: PAST HX, none since lost 100# Disease Osteoarthritis Yes: HANDS, BACK,KNEES Clostridium Difficile Yes: 03/29/18 Other Infectious Yes: infection after appy Anesthesia Reactions Yes: TROUBLE BREATHING AND LOW HEART RATE WHEN WAKING UP Depression Yes Post Menopausal Yes Clinic Medical History (Last Reviewed 02/17/18 @ 09:50 by Monica Barker Daniel) Paroxysmal atrial fibrillation (Chronic Medical) After knee surgery. Dr. 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 Surgical History: * - 08/23/1977. * - . * Carpal Tunnel Repair 1979. * Carpal Tunnel Repair 1981. * - 1982. * Laparoscopic tubal ligation - 1984. * Lap Band procedure 01/2007. The band was eventually released to allow no change of stomach size. * Colonoscopy - [address] Db Skelton. * Right TKR - 2013. * Pacemaker - 2013. * Laparoscopic gastric bypass - 12/[address] Trell Luke in [facility]. * Left robot-assisted laparoscopic partial nephrectomy - 05/09/[address] Wil Carrillo at [facility] in [place], [place]. Pathology was Clear -cell cancer. Margins negative. Appendectomy Jan 11 2018 Family History: Family History (Last Reviewed 02/17/18 @ 09:50 by Monica Barker [facility]) Mother , 70 Lupus Kidney failure High blood pressure Father , 91 CAD (coronary artery disease) Neurological abnormality Hx of CABG High blood pressure - Social History Smoking status: Never smoker second hand exposure: No Substance use type: does not use Alcohol intake frequency: does not drink Household members: spouse Current occupational status: employed Does patient use chewing tobacco?: No Physical Exam - Limitations Limitations: no limitations - General General appearance: alert, in no apparent distress - ENT ENT exam: Present: normal oropharynx, mucous membranes moist, TM's normal bilaterally - Neck Neck exam: Present: full ROM, trachea midline. Absent: tenderness - Chest Chest inspection: Present: symmetric chest wall rise. Absent: tenderness - Respiratory Respiratory exam: Present: normal lung sounds bilaterally. Absent: respiratory distress, wheezes, stridor - Cardiovascular Cardiovascular exam: Present: regular rate, normal rhythm, normal heart sounds - Abdominal Exam Abdominal exam: Present: soft, tenderness (mild diffuse tenderness), hyperactive bowel sounds. Absent: distention - Back Exam Back exam: Present: full ROM - Skin Skin exam: Present: warm, dry - Neurological Exam Neurological exam: Present: alert, oriented X3 - Psychiatric Psychiatric exam: Present: normal affect, normal mood Course Vital Signs Temperature 98.0 F 03/29/18 13:31 Pulse Rate 68 03/29/18 13:31 Respiratory Rate 18 03/29/18 13:31 Blood Pressure 118/55 03/29/18 13:31 Pulse Oximetry 94 03/29/18 13:31 Temperature 98.8 F 04/03/18 08:00 Pulse Rate 66 04/03/18 09:22 Respiratory Rate 18 08/06/18 08:00 Blood Pressure 117/69 08/06/18 08:00 Pulse Oximetry 96 04/03/18 08:00 Nausea/Vomiting/Diarrhea - Medical Records Attestation: I reviewed the patient's medical records. - Lab Data Attestation: I reviewed the patient's lab results. Result diagrams: 04/03/18 05:08 04/02/18 04:13 Lab Results 03/29/18 03/29/18 03/29/18 Range/Units 14:12 14:13 18:14 WBC (4.5-11.0) T/MM3 RBC (4.00-5.20) M/MM3 Hgb (12-16) GM/DL Hct (36-46) % MCV (80-100) UM3 MCH (26-34) UUG MCHC (31-37) GM/DL RDW Std Deviation (36.9-50.2) FL Plt Count (130-400) T/MM3 MPV (9.4-12.4) UM3 Immature Gran % (Auto) Neut % (Auto) Lymph % (Auto) Slope % (Auto) Eos % (Auto) Baso % (Auto) Neut # (Auto) Lymph # (Auto) Slope # (Auto) Eos # (Auto) Baso # (Auto) Abs Immat Gran (auto) Neutrophils % (Manual) (33-66) % Band Neutrophils % (0-6) % Lymphocytes % (Manual) (23-45) % Monocytes % (Manual) (0-9.0) % Neutrophils # (Manual) (1.8-7.7) T/MM3 Band Neutrophils # T/MM3 Lymphocytes # (Manual) (1-4.8) T/MM3 Monocytes # (Manual) (0-0.8) T/MM3 Poikilocytosis [place] Cells RBC Morph Comment Turbidity < 20 (0-20) Sodium 135 L D (136-146) MEQ/L Potassium 3.6 (3.6-5) MEQ/L Chloride 103 (98-107) MEQ/L Carbon Dioxide 17 L D (22-30) MEQ/L Anion Gap 15 (5-15) meq/L BUN 16.0 (7-17) MG/DL Creatinine 0.8 (0.7-1.2) mg/dL Estimated Creat Clear 49 (>50) mL/min GFR Calculation 72 (>60) mL/min BUN/Creatinine Ratio 20 (6-26) RATIO Glucose 122 H (65-110) MG/DL Calculated Osmolality 262 (261-280) MOSM/KG Calcium 8.2 L (8.4-10.2) MG/DL Phosphorus (2.5-4.5) MG/DL Magnesium (1.6-2.3) MG/DL Total Bilirubin 0.70 (0.20-1.30) MG/DL Icterus Index < 2 (0-7) AST 18 (14-36) U/L ALT 21 (1-35) U/L Alkaline Phosphatase 89 (38-126) U/L Total Protein 5.6 L (6.3-8.2) g/dL Albumin 3.2 L (3.5-5.0) g/dL Globulin 2.4 (2.4-3.6) G/DL Albumin/Globulin Ratio 1.3 (1.1-2.2) RATIO Plasma Lactate 1.2 1.0 (0.6-2.2) MMOL/L Procalcitonin 2.86 H* NG/ML Specimen Hemolysis < 15 (0-25) 03/30/18 03/30/18 Range/Units 04:28 04:28 WBC 38.5 H* (4.5-11.0) T/MM3 RBC 4.36 (4.00-5.20) M/MM3 Hgb 13.1 (12-16) GM/DL Hct 37.7 D (36-46) % MCV 86.5 (80-100) UM3 MCH 30.0 (26-34) UUG MCHC 34.7 (31-37) GM/DL RDW Std Deviation 39.7 (36.9-50.2) FL Plt Count 306 (130-400) T/MM3 MPV 10.5 (9.4-12.4) UM3 Immature Gran % (Auto) Not performed Neut % (Auto) Not performed Lymph % (Auto) Not performed Slope % (Auto) Not performed Eos % (Auto) Not performed Baso % (Auto) Not performed Neut # (Auto) Not performed Lymph # (Auto) Not performed Slope # (Auto) Not performed Eos # (Auto) Not performed Baso # (Auto) Not performed Abs Immat Gran (auto) Not performed Neutrophils % (Manual) 93.0 H (33-66) % Band Neutrophils % 3.0 D (0-6) % Lymphocytes % (Manual) 1.0 L (23-45) % Monocytes % (Manual) 3.0 (0-9.0) % Neutrophils # (Manual) 35.8 H (1.8-7.7) T/MM3 Band Neutrophils # 1.2 T/MM3 Lymphocytes # (Manual) 0.4 L (1-4.8) T/MM3 Monocytes # (Manual) 1.2 H (0-0.8) T/MM3 Poikilocytosis 1+ Theodore Cells 2+ RBC Morph Comment Abnormal Turbidity < 20 (0-20) Sodium 132 L (136-146) MEQ/L Potassium 3.7 (3.6-5) MEQ/L Chloride 101 (98-107) MEQ/L Carbon Dioxide 18 L (22-30) MEQ/L Anion Gap 13 (5-15) meq/L BUN 16.0 (7-17) MG/DL Creatinine 0.7 (0.7-1.2) mg/dL Estimated Creat Clear 50 (>50) mL/min GFR Calculation 84 (>60) mL/min BUN/Creatinine Ratio 23 (6-26) RATIO Glucose 131 H (65-110) MG/DL Calculated Osmolality 258 L (261-280) MOSM/KG Calcium 8.0 L (8.4-10.2) MG/DL Phosphorus 3.4 (2.5-4.5) MG/DL Magnesium 1.9 (1.6-2.3) MG/DL Total Bilirubin (0.20-1.30) MG/DL Icterus Index < 2 (0-7) AST (14-36) U/L ALT (1-35) U/L Alkaline Phosphatase (38-126) U/L Total Protein (6.3-8.2) g/dL Albumin 2.7 L (3.5-5.0) g/dL Globulin (2.4-3.6) G/DL Albumin/Globulin Ratio (1.1-2.2) RATIO Plasma Lactate (0.6-2.2) MMOL/L Procalcitonin NG/ML Specimen Hemolysis < 15 (0-25) Disposition Clinical Impression: C. difficile colitis Leukocytosis Qualifiers: Leukocytosis type: bandemia Qualified Code(s): D72.825 - Bandemia Disposition: 02 To OBS [facility] Condition: Stable - Seen By: physician
[2018-03-29] MEDS ORDERED: VANCOMYCIN 250mg/5ml ORAL LIQ PO ONE (14:00)
[2018-03-29] MEDS ORDERED: LR 500 ML IV SCH (15:38)
--- NOTE | 2018-03-29 15:53 | History & Physical Report ---
History of Present Illness Date: 03/29/18 Chief complaint: diarrhea HPI: Patient is a 67 yo female who presents to ED today for evaluation due to 12 day h/o diarrhea and worsening abdominal cramping. Has been having watery stools hourly. Seen in her PCP's office yesterday and started on Cipro and Flagyl empirically and had WBC>20K. Today repeat WBC was >40K and she tested + for c diff. Feeling very fatigued. Hasn't been eating much b/c every time she eats she has diarrhea. Has tried imodium with no relief. She has had no previous known h/o c diff. Has been on atbx recently for cellulitis. She has had gastric bypass and states certain foods will sometimes give her diarrhea and it takes a day or two for sxs to resolve and she initially thought this was the problem. States she had a nl colonoscopy by Dr Skelton within the past 5 years. S /p appy by Dr. Myers 01/11/18. Review of Systems All systems PM: 10-point ROS was reviewed, no additional remarkable complaints except (slight h/a, diarrhea, chills, abd cramping, fatigue) Past Medical History Medical History: Medical History (Last Reviewed 02/17/18 @ 09:50 by Monica Barker Daniel) Paroxysmal atrial fibrillation (Chronic) After knee surgery. Dr. 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 Surgical History: * - 08/23/1977. * - . * Carpal Tunnel Repair 1979. * Carpal Tunnel Repair 1981. * - 1982. * Laparoscopic tubal ligation - 1984. * Lap Band procedure 01/2007. The band was eventually released to allow no change of stomach size. * Colonoscopy - [address] Db Skelton. * Right TKR - 2013. * Pacemaker - 2013. * Laparoscopic gastric bypass - 12/[address] Trell Luke in [facility]. * Left robot-assisted laparoscopic partial nephrectomy - 05/09/[address] Wil Carrillo at [facility] in [place], [place]. Pathology was Clear -cell cancer. Margins negative. 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 Saranya Arita APRN - PCP Medications Home Medications Medication Instructions Recorded Confirmed Type Aspirin 325 mg PO DAILY 03/09/17 03/29/18 History [place]-3 Fatty Acids/Fish Oil [Fish 3 cap PO DAILY 04/06/17 03/29/18 History Oil 1,200 mg Softgel] ultimate britton probiotic 1 cap PO DAILY 09/09/17 03/29/18 History Celexa (citalopram) 40 mg tablet 40 mg PO DAILY #30 tab 12/21/17 03/29/18 Rx levothyroxine 125 mcg tablet 125 mcg PO DAILY #30 tab 12/21/17 03/29/18 Rx Klor-Con Sprinkle (potassium 10 meq PO DAILY #30 cap 12/27/17 03/29/18 Rx chloride ER) 10 mEq capsule Pramipexole [Mirapex] 1 mg PO HS 01/09/18 03/29/18 History Sotalol [Betapace] 80 mg PO BID 01/09/18 03/29/18 History ferrous sulfate 325 mg (65 mg 325 mg PO QAM #90 tab 01/16/18 03/29/18 Rx iron) tablet cyanocobalamin (vit B-12) 1,000 1,000 mcg PO DAILY 03/08/18 03/29/18 History mcg capsule folic acid 800 mcg tablet 0.8 mg PO DAILY 03/08/18 03/29/18 History Cipro (ciprofloxacin) 500 mg tablet 500 mg PO BID #20 tab 03/28/18 03/29/18 Rx metronidazole 500 mg tablet 500 mg PO TID #30 tab 03/28/18 03/29/18 Rx Cholecalciferol (Vitamin D3) 5,000 unit PO DAILY 03/29/18 03/29/18 History [Vitamin D3] Melatonin Tab [Melatonin] 1 mg PO HS 03/29/18 03/29/18 History Multivitamin [One Daily] 1 each PO DAILY 03/29/18 03/29/18 History Temazepam [Restoril] 30 mg PO HS 03/29/18 03/29/18 History Allergies Allergy/AdvReac Type Severity Reaction Status Date / Time Penicillins Allergy Unknown RASH Verified 03/29/18 14:22 Sulfa (Sulfonamide Allergy Unknown ? RASH Verified 03/29/18 14:22 Antibiotics) triamterene Allergy Unknown HIVES Verified 03/29/18 14:22 Exam Vital Signs: Temperature 98.0 F 03/29/18 13:31 Pulse Rate 68 03/29/18 13:31 Respiratory Rate 18 03/29/18 13:31 Blood Pressure 118/55 03/29/18 13:31 Pulse Oximetry 94 03/29/18 13:31 Height/Weight/BMI: Height 1.52 m Weight 70.7 kg - Constitutional Present: no acute distress, well nourished, well developed - Routine HEENT Exam Head: Present: normocephalic, atraumatic Eye: Present: EOMI, PERRL ENT: Present: mucous membranes moist, oropharynx clear - Routine Neck Exam Present: supple. Absent: lymphadenopathy, thyromegaly - Routine Respiratory Exam Present: CTA bilaterally. Absent: wheezes - Routine Cardiovascular Exam Present: RRR, no murmur - Routine Abdominal Exam Present: soft, tenderness (diffuse - mild). Absent: normoactive bowel sounds ( has hyperactive BS's), distended - Routine Extremities Exam Present: no edema, normal capillary refill - Routine Skin Exam Present: dry, warm - Routine Neurological Exam Present: alert, oriented X3, CN II-XII intact - Routine Psychiatric Exam Present: normal affect, cooperative Results - Labs CBC & Chem 7: 03/29/18 14:13 Microbiology Results: Microbiology 03/29/18 14:17 Peripheral/Iv Start Blood Culture - Preliminary Culture Initiated - Results Pending 03/29/18 14:12 Midline Blood Culture - Preliminary Culture Initiated - Results Pending Assessment and Plan Assessment and Plan: Assessment Severe clostridium difficile diarrhea infection Leukocytosis [id number] on admission Paroxysmal atrial fibrillation - currently in NSR Hypothyroidism Degenerative joint disease-knee Prediabetes Restless leg syndrome Depression Hypercholesterolemia Obesity Left kidney cancer-treated with partial nephrectomy 05/09/17 with clear margins Recent appendectomy 01/13 Recent antibiotic use for eyelid cellulitis (doxycycline 7 days starting , clindamycin 10 days starting 02/17/18) History of gastric bypass 2016 Plan Admit, OBS for rehydration and tx with oral vancomycin. Discussed observation versus inpatient status with case management -only qualifies for observation at this time. Vancomycin 500mg po given in ED. Continue Vancomycin 125mg po QID x 10 d for c diff tx. OK to have regular diet. Per UTD, can utilize Imodium or Lomotil if needed. Bolus 500cc LR followed by continuous infusion at 150cc's given her ongoing diarrhea. Repeat CBC and BMP in am to follow leukocytosis and electrolytes. Continue home medications. Will stop the Cipro and Flagyl which were started empirically. SCD's for DVT ppx. Full code. Saranya Arita APRN - PCP. 03/29/2018-5:50 PM-I examined the patient independently. I reviewed this chart, the patient history, and the PODIATRIC ASSISTANT's/PA's documented findings as above. We discussed and formulated the assessment and plan as above with the additions below.-Dr. Grace Patient was seen this evening in her room. She states she started having diarrhea about 2 weeks ago and it would come and go but became worse last weekend associated with chilling and increased fatigue. She was initially started on Cipro and Flagyl orally but then stool for C. difficile was positive. She was directed to go to the emergency room when her outpatient white count was 41,000. She states she is having frequent watery stools. She has crampy abdominal pain that comes and goes. Her abdominal pain is not severe or prolonged. Appetite is poor. She denies any lightheadedness. She denies any palpitations or shortness of breath. On exam she is alert and in no acute distress. Chest is clear to auscultation. Cardiovascular reveals a regular rate and rhythm. Abdomen is soft with minimal tenderness. No rebound or guarding. Bowel sounds are present. No obvious abdominal distention. Extremities are free of edema. Skin is warm and dry and without rashes Pertinent lab includes white count of 41,000, hemoglobin 14.6, platelets 344, bands 28% Proximal calcitonin 2.86, plasma lactate 1.2, sodium 135, carbon dioxide 17, anion gap normal at 15 Impression Severe C. difficile colitis-she does not appear to have fulminant C. difficile colitis at this time. Leukocytosis likely secondary to C. difficile Non-anion gap metabolic acidosis-likely secondary to diarrhea and acute infection Plan Vancomycin 125 by mouth 4 times a day 10 days. Monitor for signs of worsening C. difficile. Continue LR for metabolic acidosis and signs of dehydration. Possible dismissal tomorrow if lab work is improving and she is tolerating by mouth Vanco well DVT Prophylaxis: SCD's Resuscitation Status: Full Code - Physician Narrative Narrative: Date: 03/29/18 Time: 1540 Hospital Course Summary Disclaimer: The visit summary below is not to be considered part of the above Progress Note. Hospital Course: 03/29/18 Admit, OBS for rehydration and tx with oral vancomycin. Discussed observation versus inpatient status with case management -only qualifies for observation at this time. Vancomycin 500mg po given in ED. Continue Vancomycin 125mg po QID x 10 d for c diff tx. OK to have regular diet. Per UTD, can utilize Imodium or Lomotil if needed. Bolus 500cc LR followed by continuous infusion at 150cc's given her ongoing diarrhea. Repeat CBC and BMP in am to follow leukocytosis and electrolytes. Continue home medications. Will stop the Cipro and Flagyl which were started empirically. SCD's for DVT ppx. Full code. Saranya Arita APRN - PCP.
[2018-03-29] MEDS ORDERED: HYDROCODONE/APAP 5mg/325mg TABLET PO PRN (17:17)
[2018-03-29] MEDS: LR 1,000 ML IV SCH (20:47)
[2018-03-29] MEDS: MELATONIN 1 MG TABLET PO SCH (22:04)
[2018-03-29] MEDS: TEMAZEPAM 30 MG CAPSULE PO SCH (22:04)
[2018-03-29] MEDS: PRAMIPEXOLE 1 MG TABLET PO SCH (22:04)
[2018-03-29] MEDS: SOTALOL 80 MG TABLET PO SCH (22:04)
[2018-03-29] MEDS: VANCOMYCIN 250mg/5ml ORAL LIQ PO SCH (22:07)
[2018-03-29] MEDS: CITALOPRAM 40 MG TABLET PO SCH (22:07)
[2018-03-29] MEDS ORDERED: SALINE FLUSH 10ml SYRINGE IV PRN (22:29)
[2018-03-30] MEDS: VANCOMYCIN 250mg/5ml ORAL LIQ PO SCH ×4 (04:06→23:33)
[2018-03-30] MEDS: LR 1,000 ML IV SCH ×2 (07:16→23:36)
[2018-03-30] MEDS: LACTOBACILLUS (15B cfu) CAPSULE PO SCH (08:39)
[2018-03-30] MEDS: SOTALOL 80 MG TABLET PO SCH ×2 (08:40→23:31)
[2018-03-30] MEDS: CYANOCOBALAMIN (B-12) 500mcg TABLET PO SCH ×2 (08:40→09:21)
[2018-03-30] MEDS: MULTI-VITAMIN + MINERAL TABLET PO SCH (08:40)
[2018-03-30] MEDS: FOLIC ACID 1 MG TABLET PO SCH ×2 (08:41→09:21)
[2018-03-30] MEDS: CITALOPRAM 40 MG TABLET PO SCH ×3 (08:41→23:31)
[2018-03-30] MEDS: FERROUS SULFATE 324 MG TABLET PO SCH ×2 (08:41→09:22)
[2018-03-30] MEDS: ASPIRIN 325 MG TABLET PO SCH ×2 (08:42→09:36)
[2018-03-30] MEDS: LEVOTHYROXINE 125 MCG TABLET PO SCH (08:49)
[2018-03-30] MEDS ORDERED: OMEGA-3 ACID ESTERS 1 GM CAPSULE PO SCH (09:00)
--- NOTE | 2018-03-30 09:55 | Progress Note ---
- Date 03/30/18 Subjective: Patient seen resting in bed this am. She is feeling a little better. She was up 3x overnight with diarrhea and had 1 loose stool this am. She hasn't eaten anything yet b/c she is afraid it will go right through her. She reports the abdominal cramping is a bit better. Still feels weak. No CP, SOA, f/c. Objective Vital signs: Temperature 96.7 F L 03/30/18 07:23 Pulse Rate 70 03/30/18 08:40 Respiratory Rate 20 03/30/18 07:23 Blood Pressure 128/76 03/30/18 07:23 Pulse Oximetry 95 03/30/18 07:23 Height/Weight/BMI: Height 1.52 m Weight 76.8 kg Body Mass Index 32.4 - Constitutional Present: no acute distress, well nourished, well developed - Routine HEENT Exam Head: Present: normocephalic, atraumatic - Routine Respiratory Exam Present: CTA bilaterally. Absent: wheezes - Routine Cardiovascular Exam Present: RRR, no murmur - Routine Abdominal Exam Present: soft, normoactive bowel sounds, tenderness (diffuse), non distended - Routine Extremities Exam Present: no edema, normal capillary refill - Routine Skin Exam Present: dry, warm - Routine Neurological Exam Present: alert, oriented X3 - Routine Lymphatic Exam Lymphatic: Absent: adenopathy - Routine Psychiatric Exam Present: normal affect, cooperative Results - Labs CBC & Chem 7: 03/30/18 04:28 03/30/18 04:28 Microbiology Results: Microbiology 03/29/18 14:17 Peripheral/Iv Start Blood Culture - Preliminary Culture Initiated - Results Pending 03/29/18 14:12 Midline Blood Culture - Preliminary Culture Initiated - Results Pending Assessment and Plan Assessment and Plan: Assessment Severe clostridium difficile colitis Leukocytosis [id number] on admission Non-anion gap metabolic acidosis-likely secondary to diarrhea and acute infection Paroxysmal atrial fibrillation - currently in NSR Hypothyroidism Degenerative joint disease-knee Prediabetes Restless leg syndrome Depression Hypercholesterolemia Obesity Left kidney cancer-treated with partial nephrectomy 05/09/17 with clear margins Recent appendectomy 01/13 Recent antibiotic use for eyelid cellulitis (doxycycline 7 days starting , clindamycin 10 days starting 02/17/18) History of gastric bypass 2017 Plan Day 2 vancomycin. Will increase dose to 500mg QID based on IDSA guidelines given her continued significant leukocytosis. WBC 41.2 --> 38.5 Encouraged her to go ahead and try to eat, even if it is jello or applesauce. Continue IVF's as she isn't taking much po. Sodium is lower today 135-->132. Reduce IVF's to 50ml/hr. 03/30/18-4:15pm-I examined the patient independently. I reviewed this chart, the patient history, and the FINANCIAL REPORTING CONSULTANT's/PA's documented findings as above. We discussed and formulated the assessment and plan as above with the additions below.-Dr. Grace The patient states she's feeling better today. She was able to eat a couple of bites of food. She is drinking fluids without difficulty. She had some emesis this morning when taking her pills, but no emesis since then. She states her abdominal cramps are improving. She denies any bloody stools. She denies any shortness of breath or chest pain. On exam she is alert and in no acute distress. Chest is clear to auscultation. Cardiovascular reveals a regular rate and rhythm. Abdomen is soft with mild tenderness throughout. No rebound or guarding. No tympany. No distention. Extremities are free of edema. Skin is warm and dry and without rashes. Laboratory reveals white count is still quite elevated at 38.5. Bandemia has improved to 3 down from 28. Impression and plan Severe C. difficile colitis-with white count not improving much, I do agree with increased vancomycin dose Encourage by mouth intake Repeat CBC with differential, renal panel, magnesium tomorrow Decrease IV fluid rate DVT Prophylaxis: SCD's Resuscitation Status: Full Code - Physician Narrative Narrative: Date: 03/29/18 Time: 1540 Hospital Course Summary Disclaimer: The visit summary below is not to be considered part of the above Progress Note. Hospital Course: 03/29/18 Admit, OBS for rehydration and tx with oral vancomycin. Discussed observation versus inpatient status with case management -only qualifies for observation at this time. Vancomycin 500mg po given in ED. Continue Vancomycin 125mg po QID x 10 d for c diff tx. OK to have regular diet. Per UTD, can utilize Imodium or Lomotil if needed. Bolus 500cc LR followed by continuous infusion at 150cc's given her ongoing diarrhea. Repeat CBC and BMP in am to follow leukocytosis and electrolytes. Continue home medications. Will stop the Cipro and Flagyl which were started empirically. SCD's for DVT ppx. Full code. Saranya Arita APRN - PCP. 03/30/18 Day 2 vancomycin. Will increase dose to 500mg QID based on IDSA guidelines given her continued significant leukocytosis. WBC 41.2 --> 38.5 Encouraged her to go ahead and try to eat, even if it is jello or applesauce. Continue IVF's as she isn't taking much po. Sodium is lower today 135-->132. Reduce IVF's to 50ml/hr.
[2018-03-30 16:41] VITALS: BMI 33.0
[2018-03-30] MEDS ORDERED: TEMAZEPAM 15 MG CAPSULE PO ONE (23:22)
[2018-03-30] MEDS: MELATONIN 1 MG TABLET PO SCH (23:30)
[2018-03-30] MEDS: PRAMIPEXOLE 1 MG TABLET PO SCH (23:30)
[2018-03-30] MEDS: TEMAZEPAM 30 MG CAPSULE PO SCH ×3 (23:30→23:34)
[2018-03-31] MEDS: VANCOMYCIN 250mg/5ml ORAL LIQ PO SCH ×4 (04:04→22:22)
[2018-03-31] MEDS: ASPIRIN 325 MG TABLET PO SCH (10:03)
[2018-03-31] MEDS: PHOSPHORUS 250 MG TABLET PO SCH ×4 (10:03→22:24)
[2018-03-31] MEDS: MULTI-VITAMIN + MINERAL TABLET PO SCH (10:04)
[2018-03-31] MEDS: SOTALOL 80 MG TABLET PO SCH ×2 (10:05→22:23)
[2018-03-31] MEDS: LACTOBACILLUS (15B cfu) CAPSULE PO SCH (10:07)
[2018-03-31] MEDS: LEVOTHYROXINE 125 MCG TABLET PO SCH (10:07)
--- NOTE | 2018-03-31 11:25 | Progress Note ---
- Date 03/31/18 Subjective: Patient is seen this morning and reports she is not feeling much better. States she was up about every hour overnight and this morning has had loose stools approximately every 30 minutes. She has been eating and drinking some, but states she doesn't want to eat because it seems to make the diarrhea worse. She continues to have cramping in her abdomen especially if she eats or drinks. She has not noted any blood in her stools. No fever. No nausea or vomiting. Objective Vital signs: Temperature 97.1 F 03/31/18 08:00 Pulse Rate 71 03/31/18 10:05 Respiratory Rate 18 03/31/18 08:00 Blood Pressure 135/78 03/31/18 08:00 Pulse Oximetry 94 03/31/18 08:00 Height/Weight/BMI: Height 1.52 m Weight 76.1 kg Body Mass Index 33.0 - Constitutional Present: no acute distress, well nourished, well developed - Routine HEENT Exam Head: Present: normocephalic, atraumatic - Routine Respiratory Exam Present: CTA bilaterally. Absent: wheezes - Routine Cardiovascular Exam Present: RRR, no murmur - Routine Abdominal Exam Present: soft, normoactive bowel sounds, tenderness (slight, diffuse), non distended - Routine Extremities Exam Present: no edema, normal capillary refill - Routine Skin Exam Present: dry, warm - Routine Neurological Exam Present: alert, oriented X3 - Routine Lymphatic Exam Lymphatic: Absent: adenopathy - Routine Psychiatric Exam Present: normal affect, cooperative Results - Labs CBC & Chem 7: 03/31/18 04:26 03/31/18 04:26 Microbiology Results: Microbiology 03/29/18 14:12 Midline Blood Culture - Preliminary No Growth After 1 Day 03/29/18 14:17 Peripheral/Iv Start Blood Culture - Preliminary No Growth After 1 Day Assessment and Plan Assessment and Plan: Assessment Severe clostridium difficile colitis Leukocytosis - improving [id number] on admission Non-anion gap metabolic acidosis-likely secondary to diarrhea and acute infection - resolved Paroxysmal atrial fibrillation - currently in NSR Hypothyroidism Degenerative joint disease-knee Prediabetes Restless leg syndrome Depression Hypercholesterolemia Obesity Left kidney cancer-treated with partial nephrectomy 05/09/17 with clear margins Recent appendectomy 01/13 Recent antibiotic use for eyelid cellulitis (doxycycline 7 days starting , clindamycin 10 days starting 02/17/18) History of gastric bypass 2017 Plan Day 3 vancomycin. Continues on 500mg QID dosing based on IDSA guidelines. Given her continued, frequent diarrheal stools, will add Flagyl 500mg IV q 8 hrs and Lomotil PRN. WBC 41.2 --> 38.5-->16.5. Repeat CBC in am. Continue IVF's to maintain hydration given her continued diarrhea. Sodium improved. KPhos started for low phosphorus and potassium is being replaced due to low potassium. Repeat BMP in am. 03/31/2018-5 PM-I examined the patient independently. I reviewed this chart, the patient history, and the PIE MAKER MACHINE's/PA's documented findings as above. We discussed and formulated the assessment and plan as above with the additions below.-Dr. Grace The patient was seen this afternoon in her room. She states she continues to have frequent diarrhea. She denies any abdominal pain except for cramping that occurs right before she has to have a diarrheal stool. She denies any blood in her stool. Her appetite is good, but eating causes her to have diarrhea. She denies any shortness of breath or pain elsewhere. On exam she is alert and oriented and in no acute distress. Chest is clear to auscultation. Cardiovascular reveals a regular rate and rhythm. Abdomen is soft and nontender with positive bowel sounds. No tympany. Extremities are free of edema. Skin is warm and dry and without rashes. White count today is down to 16.5. Bands are 2% and neutrophils 79%. potassium is mildly low at 3.5. Phosphorus is mildly low at 2.3. Magnesium is normal. Impression and plan Severe C. difficile colitis with elevated white count-improving. Metronidazole was added today. Repeat CBC tomorrow. Since the patient is hungry and food does not make her nauseated or have abdominal pain, I did encourage her to continue eating. Continue IV fluids for now. When the frequency of stools has decreased, and likely stop IV fluids. Possible dismissal this weekend if she continues to improve. Recheck renal panel and CBC tomorrow. DVT Prophylaxis: SCD's Resuscitation Status: Full Code - Physician Narrative Physician: Kassidy Grace MD Narrative: Date: 03/29/18 Time: 1540 Hospital Course Summary Disclaimer: The visit summary below is not to be considered part of the above Progress Note. Hospital Course: 03/29/18 Admit, OBS for rehydration and tx with oral vancomycin. Discussed observation versus inpatient status with case management -only qualifies for observation at this time. Vancomycin 500mg po given in ED. Continue Vancomycin 125mg po QID x 10 d for c diff tx. OK to have regular diet. Per UTD, can utilize Imodium or Lomotil if needed. Bolus 500cc LR followed by continuous infusion at 150cc's given her ongoing diarrhea. Repeat CBC and BMP in am to follow leukocytosis and electrolytes. Continue home medications. Will stop the Cipro and Flagyl which were started empirically. SCD's for DVT ppx. Full code. Saranya Arita, PIE MAKER MACHINE - PCP. 03/30/18 Day 2 vancomycin. Will increase dose to 500mg QID based on IDSA guidelines given her continued significant leukocytosis. WBC 41.2 --> 38.5 Encouraged her to go ahead and try to eat, even if it is jello or applesauce. Continue IVF's as she isn't taking much po. Sodium is lower today 135-->132. Reduce IVF's to 50ml/hr. 03/31/18 Day 3 vancomycin. Continues on 500mg QID dosing based on IDSA guidelines. Given her continued, frequent diarrheal stools, will add Flagyl 500mg IV q 8 hrs and Lomotil PRN. WBC 41.2 --> 38.5-->16.5. Repeat CBC in am. Continue IVF's to maintain hydration given her continued diarrhea. Sodium improved. KPhos started for low phosphorus and potassium is being replaced due to low potassium. Repeat BMP in am.
[2018-03-31] MEDS ORDERED: DIPHENOXYLATE PO PRN (11:47)
[2018-03-31] MEDS ORDERED: ATROPINE PO PRN (11:47)
[2018-03-31] MEDS: MetroNIDAZOLE PB 500 MG/100 ML BAG IV SCH ×2 (13:58→22:17)
[2018-03-31] MEDS: DIPHENOXYLATE /ATROPINE TABLET PO PRN ×2 (17:08→19:46)
[2018-03-31] MEDS: LR 1,000 ML IV SCH (22:16)
[2018-03-31] MEDS: TEMAZEPAM 30 MG CAPSULE PO SCH (22:22)
[2018-03-31] MEDS: CITALOPRAM 40 MG TABLET PO SCH (22:23)
[2018-03-31] MEDS: MELATONIN 1 MG TABLET PO SCH (22:24)
[2018-03-31] MEDS: PRAMIPEXOLE 1 MG TABLET PO SCH (22:24)
[2018-04-01] MEDS: DIPHENOXYLATE /ATROPINE TABLET PO PRN ×3 (03:06→18:37)
[2018-04-01] MEDS: VANCOMYCIN 250mg/5ml ORAL LIQ PO SCH ×5 (03:06→21:33)
[2018-04-01] MEDS: MetroNIDAZOLE PB 500 MG/100 ML BAG IV SCH ×3 (04:32→21:34)
[2018-04-01] MEDS: LEVOTHYROXINE 125 MCG TABLET PO SCH (09:24)
[2018-04-01] MEDS: PHOSPHORUS 250 MG TABLET PO SCH ×4 (09:24→21:34)
[2018-04-01] MEDS: ASPIRIN 325 MG TABLET PO SCH (09:24)
[2018-04-01] MEDS: SOTALOL 80 MG TABLET PO SCH ×2 (09:24→21:34)
[2018-04-01] MEDS: LACTOBACILLUS (15B cfu) CAPSULE PO SCH (09:25)
[2018-04-01] MEDS: MULTI-VITAMIN + MINERAL TABLET PO SCH (09:25)
--- NOTE | 2018-04-01 11:03 | Progress Note ---
- Date 04/01/18 Subjective: 67 yo female who presents to ED on 03/29/18 for evaluation due to a 12 day h/o diarrhea and worsening abdominal cramping. Has been having watery stools hourly. She was seen in her PCP's office 03/28/18 and started on Cipro and Flagyl empirically. Her WBC then was >20K. By 03/29/18 it had climbed to >40K and she tested + for c diff. She has been feeling very fatigued, not eating well as she felt it worsened her diarrhea. She did try Imodium without improvement. She has had no previous known h/o c diff. Has been on atbx recently for cellulitis. She has had gastric bypass and states certain foods will sometimes give her diarrhea and it takes a day or two for sxs to resolve and she initially thought this was the problem. States she had a nl colonoscopy by Dr Skelton within the past 5 years. S/p appy by Dr. Myers 01/11. When seen by me this morning she is sitting up at the side of the bed having breakfast. She states she is feeling better. She has only had to loose stools by 715 this morning. Both of them were watery. She denies any further abdominal cramping today. She is eating well. She denies any fevers or chills. She denies any lightheadedness or dizziness. She denies any shortness of breath, cough or sputum production. She denies nausea or vomiting. There are no black, tarry stools or bloody stools. No dysuria. Extremity edema. Objective Vital signs: Temperature 96.5 F L 04/01/18 08:00 Pulse Rate 71 04/01/18 09:24 Respiratory Rate 12 04/01/18 08:00 Blood Pressure 116/62 04/01/18 08:00 Pulse Oximetry 94 04/01/18 08:00 Height/Weight/BMI: Height 1.52 m Weight 77.3 kg Body Mass Index 33.0 Comments: Gen: alert and oriented. NAD. Pleasant and conversive Skin: warm and dry, No rashes HEENT: NC/AT PERRL, EOMI, Sclera, lids and conjunctiva wnl. MMM. OP clear. Neck: No JVD, Carotids 2+ without bruits. Lungs: clear without rales, rhonchi or wheezes CV: regular, soft murmur, no rubs or gallops. Pedal pulses 2+, radial pulses 2+, No edema Abd: soft. +BS, NT/ND. MS: ELLIS, Normal ROM, strength Neuro: No focal deficit Psy: Appropriate mood and affect Results - Labs CBC & Chem 7: 04/01/18 03:52 04/01/18 03:52 Microbiology Results: Microbiology 03/29/18 14:17 Peripheral/Iv Start Blood Culture - Preliminary No Growth After 2 Days 03/29/18 14:12 Midline Blood Culture - Preliminary No Growth After 2 Days Assessment and Plan Assessment and Plan: Assessment and plan: severe clostridium difficile colitis -symptoms improving, less frequent diarrhea -continue oral vancomycin -change to oral Flagyl -continue IV fluids -leukocytosis trending down nicely -pro-calcitonin normalized Paroxysmal atrial fibrillation -currently in sinus rhythm -on sotalol -not on oral anticoagulation, [id number] = 2 for age and female gender only 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 Hospital Course: 03/29/18 Admit, OBS for rehydration and tx with oral vancomycin. Discussed observation versus inpatient status with case management -only qualifies for observation at this time. Vancomycin 500mg po given in ED. Continue Vancomycin 125mg po QID x 10 d for c diff tx. OK to have regular diet. Per UTD, can utilize Imodium or Lomotil if needed. Bolus 500cc LR followed by continuous infusion at 150cc's given her ongoing diarrhea. Repeat CBC and BMP in am to follow leukocytosis and electrolytes. Continue home medications. Will stop the Cipro and Flagyl which were started empirically. SCD's for DVT ppx. Full code. Saranya Arita APRN - PCP. 03/30/18 Day 2 vancomycin. Will increase dose to 500mg QID based on IDSA guidelines given her continued significant leukocytosis. WBC 41.2 --> 38.5 Encouraged her to go ahead and try to eat, even if it is jello or applesauce. Continue IVF's as she isn't taking much po. Sodium is lower today 135-->132. Reduce IVF's to 50ml/hr. 03/31/18 Day 3 vancomycin. Continues on 500mg QID dosing based on IDSA guidelines. Given her continued, frequent diarrheal stools, will add Flagyl 500mg IV q 8 hrs and Lomotil PRN. WBC 41.2 --> 38.5-->16.5. Repeat CBC in am. Continue IVF's to maintain hydration given her continued diarrhea. Sodium improved. KPhos started for low phosphorus and potassium is being replaced due to low potassium. Repeat BMP in am.
[2018-04-01] MEDS: LR 1,000 ML IV SCH ×2 (17:37→22:13)
[2018-04-01] MEDS: TEMAZEPAM 30 MG CAPSULE PO SCH (21:33)
[2018-04-01] MEDS: PRAMIPEXOLE 1 MG TABLET PO SCH (21:34)
[2018-04-01] MEDS: CITALOPRAM 40 MG TABLET PO SCH (21:34)
[2018-04-01] MEDS: MELATONIN 1 MG TABLET PO SCH (21:34)
[2018-04-02] MEDS: MetroNIDAZOLE PB 500 MG/100 ML BAG IV SCH (04:02)
[2018-04-02] MEDS: VANCOMYCIN 250mg/5ml ORAL LIQ PO SCH ×4 (04:02→20:06)
[2018-04-02] MEDS: LR 1,000 ML IV SCH ×2 (05:46→20:06)
[2018-04-02] MEDS: PANTOPRAZOLE 20 MG TABLET PO SCH (05:47)
--- NOTE | 2018-04-02 08:46 | Progress Note ---
- Date 04/02/18 Subjective: 67 yo female who presents to ED on 03/29/18 for evaluation due to a 12 day h/o diarrhea and worsening abdominal cramping. Has been having watery stools hourly. She was seen in her PCP's office 03/28/18 and started on Cipro and Flagyl empirically. Her WBC then was >20K. By 03/29/18 it had climbed to >40K and she tested + for c diff. She has been feeling very fatigued, not eating well as she felt it worsened her diarrhea. She did try Imodium without improvement. She has had no previous known h/o c diff. Has been on atbx recently for cellulitis. She has had gastric bypass and states certain foods will sometimes give her diarrhea and it takes a day or two for sxs to resolve and she initially thought this was the problem. States she had a nl colonoscopy by Dr Skelton within the past 5 years. S/p appy by Dr. Myers 01/11. When seen by me this morning she is resting in bed. She did have a more formed stool this morning. She saved deformity because there is red blood in it. I looked and indeed there is some bright red blood. The stool itself is starting to have some form to it and is brown. I did examine her rectum and there is no evidence of excoriation her bleeding from the rectum. There is a nodule in the upper right corner of the rectal rim which appears chronic and without evidence of bleeding. She does report less frequent stools. She denies any abdominal cramping. She reports eating well. She still reports feeling very washed out and fatigued. I did tell her to try not to stay in bed but to try to be as active as possible. She denies any fevers or chills. She denies any lightheadedness or dizziness. She denies any shortness of breath, cough or sputum production. She denies nausea or vomiting. He denies any dysuria. She denies any problems with lower extremity edema. Objective Vital signs: Temperature 97.3 F 04/02/18 00:15 Pulse Rate 65 04/02/18 00:15 Respiratory Rate 28 H 04/02/18 00:15 Blood Pressure 104/55 04/02/18 00:15 Pulse Oximetry 96 04/02/18 00:15 Height/Weight/BMI: Height 1.52 m Weight 77.3 kg Body Mass Index 33.0 Comments: Gen: alert and oriented. NAD. Pleasant and conversive Skin: warm and dry, No rashes HEENT: NC/AT PERRL, EOMI, Sclera, lids and conjunctiva wnl. MMM. OP clear. Neck: No JVD, Carotids 2+ without bruits. Lungs: clear without rales, rhonchi or wheezes CV: regular, soft murmur, no rubs or gallops. Pedal pulses 2+, radial pulses 2+, No edema Abd: soft. +BS, NT/ND. MS: ELLIS, Normal ROM, strength Neuro: No focal deficit Psy: Appropriate mood and affect Results - Labs CBC & Chem 7: 04/02/18 04:13 04/02/18 04:13 Microbiology Results: Microbiology 03/29/18 14:17 Peripheral/Iv Start Blood Culture - Preliminary No Growth After 3 Days 03/29/18 14:12 Midline Blood Culture - Preliminary No Growth After 3 Days Assessment and Plan Assessment and Plan: Assessment and plan: severe clostridium difficile colitis -symptoms improving, less frequent diarrhea -continue oral vancomycin -change to oral Flagyl -continue IV fluids -leukocytosis trending down nicely -pro-calcitonin normalized Paroxysmal atrial fibrillation -currently in sinus rhythm -on sotalol -not on oral anticoagulation, [id number] = 2 for age and female gender only 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 Hospital Course: 03/29/18 Admit, OBS for rehydration and tx with oral vancomycin. Discussed observation versus inpatient status with case management -only qualifies for observation at this time. Vancomycin 500mg po given in ED. Continue Vancomycin 125mg po QID x 10 d for c diff tx. OK to have regular diet. Per UTD, can utilize Imodium or Lomotil if needed. Bolus 500cc LR followed by continuous infusion at 150cc's given her ongoing diarrhea. Repeat CBC and BMP in am to follow leukocytosis and electrolytes. Continue home medications. Will stop the Cipro and Flagyl which were started empirically. SCD's for DVT ppx. Full code. Saranya Arita, TIRE SERVICER - PCP. 03/30/18 Day 2 vancomycin. Will increase dose to 500mg QID based on IDSA guidelines given her continued significant leukocytosis. WBC 41.2 --> 38.5 Encouraged her to go ahead and try to eat, even if it is jello or applesauce. Continue IVF's as she isn't taking much po. Sodium is lower today 135-->132. Reduce IVF's to 50ml/hr. 03/31/18 Day 3 vancomycin. Continues on 500mg QID dosing based on IDSA guidelines. Given her continued, frequent diarrheal stools, will add Flagyl 500mg IV q 8 hrs and Lomotil PRN. WBC 41.2 --> 38.5-->16.5. Repeat CBC in am. Continue IVF's to maintain hydration given her continued diarrhea. Sodium improved. KPhos started for low phosphorus and potassium is being replaced due to low potassium. Repeat BMP in am.
[2018-04-02] MEDS: LACTOBACILLUS (15B cfu) CAPSULE PO SCH (09:21)
[2018-04-02] MEDS: ASPIRIN 325 MG TABLET PO SCH (09:21)
[2018-04-02] MEDS: SOTALOL 80 MG TABLET PO SCH ×2 (09:22→20:04)
[2018-04-02] MEDS: LEVOTHYROXINE 125 MCG TABLET PO SCH (09:22)
[2018-04-02] MEDS: MULTI-VITAMIN + MINERAL TABLET PO SCH (09:22)
[2018-04-02] MEDS: PHOSPHORUS 250 MG TABLET PO SCH ×4 (09:22→20:05)
[2018-04-02] MEDS: DIPHENOXYLATE /ATROPINE TABLET PO PRN ×2 (09:29→20:18)
[2018-04-02] MEDS: MetroNIDAZOLE 500 MG TABLET PO SCH ×2 (12:16→17:56)
[2018-04-02] MEDS: TEMAZEPAM 30 MG CAPSULE PO SCH (20:04)
[2018-04-02] MEDS: CITALOPRAM 40 MG TABLET PO SCH (20:05)
[2018-04-02] MEDS: MELATONIN 1 MG TABLET PO SCH (20:05)
[2018-04-02] MEDS: PRAMIPEXOLE 1 MG TABLET PO SCH (20:06)
[2018-04-03] MEDS: LR 1,000 ML IV SCH (02:53)
[2018-04-03] MEDS: VANCOMYCIN 250mg/5ml ORAL LIQ PO SCH ×2 (02:56→09:21)
[2018-04-03] MEDS: PANTOPRAZOLE 20 MG TABLET PO SCH ×2 (05:10→07:27)
[2018-04-03 08:14] VITALS: BP 117/69; PULSE 66; RESP 18; TEMP 98.8; O2SAT 96
[2018-04-03] MEDS: MULTI-VITAMIN + MINERAL TABLET PO SCH (09:22)
[2018-04-03] MEDS: LEVOTHYROXINE 125 MCG TABLET PO SCH (09:22)
[2018-04-03] MEDS: ASPIRIN 325 MG TABLET PO SCH (09:22)
[2018-04-03] MEDS: MetroNIDAZOLE 500 MG TABLET PO SCH (09:22)
[2018-04-03] MEDS: SOTALOL 80 MG TABLET PO SCH (09:22)
[2018-04-03] MEDS: LACTOBACILLUS (15B cfu) CAPSULE PO SCH (09:22)
[2018-04-03] MEDS: PHOSPHORUS 250 MG TABLET PO SCH (09:22)
[2018-04-03] MEDS: DIPHENOXYLATE /ATROPINE TABLET PO PRN (09:23)
[2018-04-03] MEDS ORDERED: CHOLESTYRAMINE LIGHT 4 G PACKET PO PRN ×2 (10:04→10:32)
--- NOTE | 2018-04-03 10:23 | Discharge Summary ---
Discharge Information Date of admission: 03/30/18 11:32 Anticipated date of discharge: 04/03/18 Attending Physician: Kassidy Grace MD Primary care physician: Saranya Arita APRN Consults: None Severe C-Diff Colitis A fibulation Hypokalemia- resolved Hyponatremia- resolved Hypothyroidism S/P Left partial Nephrectomy Depression - Procedures Procedures: None - Laboratory Labs: 04/03/18 05:08 04/02/18 04:13 Laboratory Tests 03/30/18 03/31/18 04/01/18 04:28 04:26 03:52 WBC 38.5 H* 16.5 H D 13.7 H 04/02/18 04/03/18 04:13 05:08 WBC 13.0 H 10.9 Laboratory Tests 03/30/18 03/31/18 04/01/18 04:28 04:26 03:52 Phosphorus 3.4 2.3 L 4.7 H - Microbiology Microbiology 03/29/18 14:12 Midline Blood Culture - Preliminary No Growth After 4 Days 03/29/18 14:17 Peripheral/Iv Start Blood Culture - Preliminary No Growth After 4 Days - Radiology Radiology: None - Pathology N/A History of Present Illness HPI: Patient is a 67 yo female who presents to ED today for evaluation due to 12 day h/o diarrhea and worsening abdominal cramping. Has been having watery stools hourly. Seen in her PCP's office yesterday and started on Cipro and Flagyl empirically and had WBC>20K. Today repeat WBC was >40K and she tested + for c diff. Feeling very fatigued. Hasn't been eating much b/c every time she eats she has diarrhea. Has tried imodium with no relief. She has had no previous known h/o c diff. Has been on atbx recently for cellulitis. She has had gastric bypass and states certain foods will sometimes give her diarrhea and it takes a day or two for sxs to resolve and she initially thought this was the problem. States she had a nl colonoscopy by Dr Skelton within the past 5 years. S /p appy by Dr. Myers 01/11/18. Objective Vital signs: Temperature 98.8 F 04/03/18 08:00 Pulse Rate 66 04/03/18 09:22 Respiratory Rate 18 04/03/18 08:00 Blood Pressure 117/69 08/06/18 08:00 Pulse Oximetry 96 04/03/18 08:00 Height/Weight/BMI: Height 1.52 m Weight 80.9 kg Body Mass Index 33.0 - Constitutional Present: no acute distress, well nourished, well developed - Routine HEENT Exam Eye: Present: EOMI ENT: Present: mucous membranes moist, dentition normal - Routine Respiratory Exam Present: CTA bilaterally. Absent: wheezes - Routine Cardiovascular Exam Present: RRR. Absent: murmur - Routine Abdominal Exam Present: soft, normoactive bowel sounds, non distended. Absent: tenderness - Routine Extremities Exam Present: no edema, full ROM - Routine Back/Spine/Pelvis Exam Back/Spine: Present: full ROM - Routine Skin Exam Present: intact, dry, warm - Routine Neurological Exam Present: alert, oriented X3, CN II-XII intact, moving all extremities - Routine Lymphatic Exam Lymphatic: Absent: adenopathy - Routine Psychiatric Exam Present: normal affect, normal thought process, cooperative Hospital Course This is a general summary of the patient's hospital course. For more details refer to the complete medical record. Hospital course: 03/29/18 Admit, OBS for rehydration and tx with oral vancomycin. Discussed observation versus inpatient status with case management -only qualifies for observation at this time. Vancomycin 500mg po given in ED. Continue Vancomycin 125mg po QID x 10 d for c diff tx. OK to have regular diet. Per UTD, can utilize Imodium or Lomotil if needed. Bolus 500cc LR followed by continuous infusion at 150cc's given her ongoing diarrhea. Repeat CBC and BMP in am to follow leukocytosis and electrolytes. Continue home medications. Will stop the Cipro and Flagyl which were started empirically. SCD's for DVT ppx. Full code. Saranya Arita, FIELD SUPPORT TECHNICIAN - PCP. 03/30/18 Day 2 vancomycin. Will increase dose to 500mg QID based on IDSA guidelines given her continued significant leukocytosis. WBC 41.2 --> 38.5 Encouraged her to go ahead and try to eat, even if it is jello or applesauce. Continue IVF's as she isn't taking much po. Sodium is lower today 135-->132. Reduce IVF's to 50ml/hr. 03/31/18 Day 3 vancomycin. Continues on 500mg QID dosing based on IDSA guidelines. Given her continued, frequent diarrheal stools, will add Flagyl 500mg IV q 8 hrs and Lomotil PRN. WBC 41.2 --> 38.5-->16.5. Repeat CBC in am. Continue IVF's to maintain hydration given her continued diarrhea. Sodium improved. KPhos started for low phosphorus and potassium is being replaced due to low potassium. Repeat BMP in am. 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 Overall , she reports that she is feeling much better. She does continue to have some loose stools, however , it is her baseline to always have looser stools. She had a very small amount of blood in her stool this morning. We discussed plan for continued oral vancomycin treatment for 10 additional days. She may also utilize Questran Powder as needed to help solidify stools. At this point, will keep patient off of her home oral potassium supplementation as potassium today is 4.8. She may need to resume oral Supplementation in the outpatient setting. Stress the importance of follow-up with PCP, Saranya Greene in the next several days and recheck CBC and BMP at that time. Did discuss with patient signs and symptoms in which she needs to return to the hospital including fever, chills, abdominal pain, vomiting, worsening loose stools or increasing blood or signs of anemia. Time spent with patient: discharge greater than 30 minutes Resuscitation Status: Full Code Discharge Plan - Discharge Disposition Discharge Date: 04/03/18 Disposition: Discharged Home, Self-Care *Condition: Stable Reason For Visit (Visit label in EMR): C. difficile colitis - Discharge Medications *Discharge Medications: New Vancomycin HCl 125 mg PO Q6HR 10 Days #120 syringe Cholestyramine/Aspartame [Cholestyramine Light Packet] 4 g PO Q6H PRN #1 bottle PRN Reason: Diarrhea Diphenoxylate/Atropine [Lomotil] 1 tab PO QID PRN #20 tab PRN Reason: Diarrhea Continue Aspirin 325 mg PO DAILY [place]-3 Fatty Acids/Fish Oil [Fish Oil 1,200 mg Softgel] 3 cap PO DAILY Sotalol [Betapace] 80 mg PO BID Cholecalciferol (Vitamin D3) [Vitamin D3] 5,000 unit PO DAILY Temazepam [Restoril] 30 mg PO HS Melatonin Tab [Melatonin] 1 mg PO HS Pramipexole [Mirapex] 1 mg PO HS Multivitamin [One Daily] 1 each PO DAILY ultimate britton probiotic 1 cap PO DAILY levothyroxine 125 mcg tablet 125 mcg PO DAILY #30 tab folic acid 800 mcg tablet 0.8 mg PO DAILY Celexa (citalopram) 40 mg tablet 40 mg PO DAILY #30 tab ferrous sulfate 325 mg (65 mg iron) tablet 325 mg PO QAM #90 tab cyanocobalamin (vit B-12) 1,000 mcg capsule 1,000 mcg PO DAILY Discontinued metronidazole 500 mg tablet 500 mg PO TID #30 tab Klor-Con Sprinkle (potassium chloride ER) 10 mEq capsule 10 meq PO DAILY #30 cap Cipro (ciprofloxacin) 500 mg tablet 500 mg PO BID #20 tab - Discharge Packet/Instructions *Diet: Regular *Activity: As Tolerated *Pain Management/Treatment: Tylenol as needed for pain *Wound Care: N/A Additional Instructions: Take Vancomycin every 6 hours for 10 days. May use Questran powder as needed for liquid/loose stools. Potassium supplementation stopped. Will have to discuss resuming this with PCP *Expected Signs/Symptoms: Continued improvement in loose stools *Notify Physician if: Fevers, chills, abdominal pain, blood in her stool, vomiting, or other concerning symptoms. Lightheaded. dizziness or shortness of breath *During Business Hours Contact: Saranya Arita-KP *After Business Hours Contact: Contact on-call provider for Saranya Arita or present to the emergency room *Pending Lab/Results: No Pending Lab - Referrals/Follow Up *Referrals/Follow Up: Saranya Arita, FIELD SUPPORT TECHNICIAN [Primary Care Provider] - ( Will need labs at that time- CBC and BMP APPOINTMENT ON 88- 145pm) - Patient Handouts Patient Handouts: Clostridium Difficile Infection (DC), Colitis (ED) - Dismissal Complete Discharge Instructions are:: Complete Physician Narrative - Narrative Physician: Kassidy Grace MD Attestation Narrative: Date: 04/03/18 Time: 1:20 PM-I examined the patient independently. I reviewed this chart, the patient history, and the FIELD SUPPORT TECHNICIAN's/PA's documented findings as above. We discussed and formulated the assessment and plan as above with the additions below.-Dr. Grace The patient was seen this morning in her room. She states she's feeling much better and states she is ready to go home. She is eating and drinking well. She is up and around in the room. She no longer feels fatigued. She still has some loose stools, but states her stools are always somewhat loose because of her gastric bypass. She had a little bit of blood in her stools yesterday morning and this morning. Abdominal pain has completely resolved. She denies any chest pain or tightness, shortness of breath, or lightheadedness. On exam she is alert and in no acute distress. She appears much better than when I saw her last Tuesday. Chest is clear to auscultation. Cardiovascular reveals a regular rate and rhythm. Abdomen is soft and nontender. Extremities are free of edema. Overall, the patient is much better. Discussed with infectious disease today. We 'll dismiss on oral vancomycin. The patient will follow-up in 2 days with Saranya Arita and will need a CBC and basic metabolic profile at that time. Patient was instructed that if she should have shortness of breath, lightheadedness, chest pain, vomiting, abdominal pain, or increased blood in her stools she should seek medical attention right away.
== END 2018-04-03 11:30 | disposition home or self-care (01) | DRG 372 ==
LOC: EDHOLD 13:31 → ED 13:31 → MED 15:20
PROVIDERS: ADMIT Internal Medicine; ATTEND Internal Medicine